=== PATIENT | female | born 1955 | race African-American/Black ===

== ENCOUNTER 2021-09-17 15:15 | Inpatient (IN) ==
--- NOTE | 2021-09-17 15:44 | Emergency Department Note ---
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 Patient reports he was hospitalized in [place] the first several days of the month and received 2 units of blood there as her blood count was low. Evidently had a syncopal event and broke her nose during this time. Prompting her initial evaluation there. She reports she has had some red blood when she sits on the toilet. Denies significant abdominal pain. Denies lightheadedness or syncope since. Did have an outpatient transfusion on the with 1 unit of blood cells. Denies of vomiting. Denies chest pain. Denies shortness of breath at rest. Patient was scheduled to see colorectal surgery in several weeks. She has had EGD and colonoscopies before. There is some question of some of this may be hemorrhoidal in nature. REVIEW OF SYSTEMS: A total of 10 review of systems was obtained and negative except as stated above in the HPI. PAST MEDICAL HISTORY: As noted above MEDICATIONS: Reviewed home medication list SOCIAL HISTORY: Lives at home, former smoker PHYSICAL EXAM: GENERAL: alert and oriented in no acute distress on stretcher, somewhat fatigued and appear Head: normocephalic and atraumatic EYES: No injection, discharge or icterus. NECK: Trachea midline. ENT: Mucous membranes pink and moist. LUNGS: Airway patent. No retractions. Breath sounds clear HEART: Regular rate and rhythm. No chest wall tenderness ABDOMEN: Soft and non-tender, without guarding or rebound. 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 Small external hemorrhoids noted. SKIN: Acyanotic, warm, dry, without rashes EXTREMITIES: Without swelling, tenderness or deformity NEUROLOGICAL: No focal deficits focal deficits. No aphasia. No facial droop or slurred speech. EK bpm normal sinus rhythm. No PVC or PAC. No acute ST segment elevation or depression. QTc 520. CONTINUOUS CARDIAC MONITORING: was ordered and showed a heart rate of 90s-100s bpm in normal sinus rhythm to sinus tachycardia Patient's laboratory studies and imaging reviewed. Differential includes Infection, dehydration, metabolic abnormality, hypo/hyperglycemia, electrolyte disturbance, anemia, hypoxia, cardiac sources,as well as other pathologies. IMPRESSION/MEDICAL DECISION MAKING: Repeat blood work was sent. EKG and chest x-ray obtained although this seems likely to be anemia related given the history. No active vomiting. Prior records from the medical center were noted with prior to being EGD from March noted some esophagitis without bleeding and some diverticula in the sigmoid colon. Patient with benign abdomen at this time doubt diverticulitis. Do not feel a CT scan of the abdomen pelvis would be beneficial at this point. Recent PEs by her report and as such would not wish to hold anticoagulation. Not hypoxic here. Type and screen sent. Patient consented for blood. Patient is anemic. Hemoccult negative on exam. Negative COVID test. Negative troponin. Again continued anticoagulation given multiple recurrent VTE's. Seems to need bleeding and possible GI evaluation as she is requiring transfusion every several days. Discussed with the patient is stable at this time as well as her significant other. Hospitalist was contacted. Doubt upper GI bleed. DIAGNOSIS: Acute blood loss anemia, history of pulmonary embolism, dyspnea on exertion DISPOSITION: Hospitalist will evaluate Patient was agreeable with this plan. Critical Care I have personally spent 35 minutes of critical care time in the direct management of this patient. This includes bedside care, interpretation of diagnostic studies, and testing, discussion with consultants, patient, and family members, and other required patient management activities. These 35 minutes is in excess of all separately billable procedures. Past Med/Surg History Surgical History (Updated 09/17/21 @ 17:52 by Brenda Acosta PA-C) S/P hysterectomy Family History (Updated 09/17/21 @ 17:54 by Brenda Acosta PA-C) Mother Ovarian cancer Grandfather (Maternal) Heart disease Social History (Updated 09/17/21 @ 18:16 by Brenda Acosta PA-C) Smoking Status: Former smoker packs per day: 1; Years Smoked: 23; Smoking End Date: 2005; Hx Alcohol Use: No Hx Substance Use: No Preferred Language: Yoruba Communication Ability: Effective Dry Ice Maker Required: No Beliefs That Will Affect Care: None Current Living Situation: Spouse Other Information That Helps Us Care for You: No Feels Safe at Home: Yes Safety Concerns: Feels Safe At This Time Assistive Devices: Glasses Allergies Allergies Allergy/AdvReac Type Severity Reaction Status Date / Time brinzolamide AdvReac Unknown CONJUNCTIVI Unverified 03/18/16 05:46 TIS codeine AdvReac Hallucinati Unverified 09/17/21 18:17 ng Home Meds Home Medications Medication Instructions Recorded Confirmed atorvastatin 40 mg tablet 40 mg PO DAILY 09/17/21 09/17/21 calcium polycarbophil 625 mg tablet 625 mg PO DAILY 09/17/21 09/17/21 ferrous sulfate 325 mg (65 mg 325 mg PO BID 09/17/21 09/17/21 iron) tablet (iron) hydrocortisone 2.5 % topical cream 1 applic DC DAILY 09/17/21 09/17/21 with perineal applicator latanoprost 0.005 % eye drops 1 drp OPB HS 09/17/21 09/17/21 levothyroxine 75 mcg tablet 75 mcg PO QAM 09/17/21 09/17/21 lisinopril 20 1 tab PO DAILY 09/17/21 09/17/21 mg-hydrochlorothiazide 12.5 mg tablet meloxicam 15 mg tablet 12 mg PO DAILY 09/17/21 09/17/21 mlnolmuttdxj-Jq-ajwx-minerals 1 tab PO DAILY 09/17/21 09/17/21 omeprazole 40 mg capsule,delayed 40 mg PO DAILY 09/17/21 09/17/21 release prednisone 10 mg tablet 5 mg PO DAILY 09/17/21 09/17/21 rivaroxaban 20 mg tablet (Xarelto) 20 mg PO DAILY 09/17/21 09/17/21 Results & Data (ED) Vital Signs Vital Signs - 24 hr 09/17/21 15:18 09/17/21 16:06 Temperature 36.2 C L Temperature Source Temporal Artery Scan Pulse Rate 105 H Pulse Rate [Apical] 98 H Pulse Rhythm Regular Pulse Rhythm [Apical] Regular Pulse Strength Normal Respiratory Rate 20 18 Respiratory Effort / Characteristics Non-Labored Spontaneous Respiratory Depth Normal Normal Respiratory Pattern Regular Blood Pressure 104/62 Blood Pressure [Left Arm] 123/78 Blood Pressure Mean 76 Blood Pressure Mean [Left Arm] 93 Blood Pressure Position Sitting Pulse Oximetry 100 96 Oxygen Delivery Method Room Air Room Air Sepsis Recent Fever Within 48 Hours No Sepsis New/Unexplained Change in Mental Status No Sepsis Action Taken by Nursing No Action Required Laboratory Data Result diagrams: 09/17/21 16:08 09/17/21 16:08 Lab Results 09/17/21 09/17/21 09/17/21 Range/Units 16:08 16:08 16:08 WBC 15.28 H (4.8-10.8) K/uL RBC 2.32 L (4.2-5.4) M/uL Hgb 6.2 L* (12.0-16.0) g/dL Hct 20.5 L* (37-47) % MCV 88.4 (80-100) fL MCH 26.7 (25-34) pg MCHC 30.2 L (32-36) g/dL RDW Std Deviation 54.5 H (36.4-46.3) fL RDW Coeff of Pete 17.6 H (11.5-14.5) % Plt Count 467 H (130-400) K/uL MPV 8.9 (7.4-10.4) fL Immature Gran % (Auto) 0.4 % Neut % (Auto) 81.8 % Lymph % (Auto) 11.8 % White % (Auto) 5.5 % Eos % (Auto) 0.4 % Baso % (Auto) 0.1 % Neut # (Auto) 12.49 H (1.4-6.5) K/uL Lymph # (Auto) 1.81 (1.2-3.4) K/uL White # (Auto) 0.84 H (0.11-0.59) K/uL Eos # (Auto) 0.06 (0-0.5) K/uL Baso # (Auto) 0.02 (0-0.2) K/uL Immature Gran # (Auto) 0.06 H (0.00-0.02) K/uL Polychromasia 1+ Hypochromasia Present Stomatocytes 1+ PT 10.9 (9.0-12.0) Seconds INR 1.0 (0.9-1.1) Sodium 136 (136-145) mmol/L Potassium 3.3 L (3.5-5.1) mmol/L Chloride 99 (98-107) mmol/L Carbon Dioxide 30 (21-32) mmol/L Anion Gap 7 (3-11) BUN 10 (6-23) mg/dl Creatinine 0.78 (0.6-1.2) mg/dl Est Cr Clr Drug Dosing Not Reportable Est GFR ( Amer) 93.1 ml/min Est GFR (Non-Af Amer) 80.3 ml/min BUN/Creatinine Ratio 12.8 (10-20) Glucose 135 H (70-99(Fasting)) mg/dl Calcium 8.5 (8.5-10.1) mg/dl Total Bilirubin 0.2 (0.2-1.0) mg/dl AST 13 (13-39) U/L ALT 13 (7-52) U/L Alkaline Phosphatase 98 (34-104) U/L Troponin I < 0.03 (0-0.04) ng/ml Total Protein 6.6 (6.0-8.3) gm/dl Albumin 3.2 L (3.4-5.0) gm/dl Globulin 3.4 (2.5-4.0) gm/dl Albumin/Globulin Ratio 0.9 (0.9-2) TSH (0.300-4.500) uIu/ml SARS-CoV-2, RNA, NAAT (NEGATIVE) Blood Type Blood Type Recheck Antibody Screen Crossmatch 09/17/21 09/17/21 09/17/21 Range/Units 16:08 16:08 16:22 WBC (4.8-10.8) K/uL RBC (4.2-5.4) M/uL Hgb (12.0-16.0) g/dL Hct (37-47) % MCV (80-100) fL MCH (25-34) pg MCHC (32-36) g/dL RDW Std Deviation (36.4-46.3) fL RDW Coeff of Pete (11.5-14.5) % Plt Count (130-400) K/uL MPV (7.4-10.4) fL Immature Gran % (Auto) % Neut % (Auto) % Lymph % (Auto) % White % (Auto) % Eos % (Auto) % Baso % (Auto) % Neut # (Auto) (1.4-6.5) K/uL Lymph # (Auto) (1.2-3.4) K/uL White # (Auto) (0.11-0.59) K/uL Eos # (Auto) (0-0.5) K/uL Baso # (Auto) (0-0.2) K/uL Immature Gran # (Auto) (0.00-0.02) K/uL Polychromasia Hypochromasia Stomatocytes PT (9.0-12.0) Seconds INR (0.9-1.1) Sodium (136-145) mmol/L Potassium (3.5-5.1) mmol/L Chloride (98-107) mmol/L Carbon Dioxide (21-32) mmol/L Anion Gap (3-11) BUN (6-23) mg/dl Creatinine (0.6-1.2) mg/dl Est Cr Clr Drug Dosing Est GFR ( Amer) ml/min Est GFR (Non-Af Amer) ml/min BUN/Creatinine Ratio (10-20) Glucose (70-99(Fasting)) mg/dl Calcium (8.5-10.1) mg/dl Total Bilirubin (0.2-1.0) mg/dl AST (13-39) U/L ALT (7-52) U/L Alkaline Phosphatase (34-104) U/L Troponin I (0-0.04) ng/ml Total Protein (6.0-8.3) gm/dl Albumin (3.4-5.0) gm/dl Globulin (2.5-4.0) gm/dl Albumin/Globulin Ratio (0.9-2) TSH 3.189 (0.300-4.500) uIu/ml SARS-CoV-2, RNA, NAAT NEGATIVE (NEGATIVE) Blood Type O Positive Blood Type Recheck Antibody Screen NEGATIVE Crossmatch See Detail 09/17/21 Range/Units 17:10 WBC (4.8-10.8) K/uL RBC (4.2-5.4) M/uL Hgb (12.0-16.0) g/dL Hct (37-47) % MCV (80-100) fL MCH (25-34) pg MCHC (32-36) g/dL RDW Std Deviation (36.4-46.3) fL RDW Coeff of Pete (11.5-14.5) % Plt Count (130-400) K/uL MPV (7.4-10.4) fL Immature Gran % (Auto) % Neut % (Auto) % Lymph % (Auto) % White % (Auto) % Eos % (Auto) % Baso % (Auto) % Neut # (Auto) (1.4-6.5) K/uL Lymph # (Auto) (1.2-3.4) K/uL White # (Auto) (0.11-0.59) K/uL Eos # (Auto) (0-0.5) K/uL Baso # (Auto) (0-0.2) K/uL Immature Gran # (Auto) (0.00-0.02) K/uL Polychromasia Hypochromasia Stomatocytes PT (9.0-12.0) Seconds INR (0.9-1.1) Sodium (136-145) mmol/L Potassium (3.5-5.1) mmol/L Chloride (98-107) mmol/L Carbon Dioxide (21-32) mmol/L Anion Gap (3-11) BUN (6-23) mg/dl Creatinine (0.6-1.2) mg/dl Est Cr Clr Drug Dosing Est GFR ( Amer) ml/min Est GFR (Non-Af Amer) ml/min BUN/Creatinine Ratio (10-20) Glucose (70-99(Fasting)) mg/dl Calcium (8.5-10.1) mg/dl Total Bilirubin (0.2-1.0) mg/dl AST (13-39) U/L ALT (7-52) U/L Alkaline Phosphatase (34-104) U/L Troponin I (0-0.04) ng/ml Total Protein (6.0-8.3) gm/dl Albumin (3.4-5.0) gm/dl Globulin (2.5-4.0) gm/dl Albumin/Globulin Ratio (0.9-2) TSH (0.300-4.500) uIu/ml SARS-CoV-2, RNA, NAAT (NEGATIVE) Blood Type Blood Type Recheck O Positive Antibody Screen Crossmatch Administered Medications Ferrous Sulfate (Ferrous Sulfate 325 Mg Tab) 325 mg PO BID MICHELLE Stop: 10/17/21 20:59 Last Admin: 09/17/21 20:57 Dose: 325 mg Documented by: [id number] Lactated Ringer's (Lr) 1,000 mls @ 80 mls/hr IV .[id number] [facility] Stop: 10/17/21 19:29 Last Admin: 09/17/21 20:53 Dose: 80 mls/hr Documented by: [id number] Latanoprost (Latanoprost 0.005% Op Soln 2.5 Ml Btl) 1 drops OPB HS MICHELLE Stop: 10/17/21 20:59 Last Admin: 09/17/21 20:58 Dose: 1 drops Documented by: [id number] Imaging Data Radiologist's Impression: Chest X-Ray 09/17/21 15:56 SINGLE VIEW CHEST CLINICAL HISTORY: Dyspnea on exertion. FINDINGS: An AP, portable, upright chest radiograph is compared to study dated 03/04/2016. The cardiomediastinal silhouette is unremarkable. There is mild bibasilar atelectasis. The lungs and pleural spaces are otherwise clear. Apparent increase in density at the lung bases is related to overlying soft tissue. No pneumothorax is seen. The bony thorax is grossly intact. IMPRESSION: No active disease in the chest. ACT 112: Negative or not required by law. Electronically signed by: Amos Mcdaniel M.D. 09/17/2021 4:32 PM Discharge Plan Visit Data Chief Complaint: Abnormal Labs/Diagnostic Testing Stated Complaint: DR REFERRED, LOW HEMO, ABNORMAL LABS ED Provider: Ed Tapia Discharge Problem: Anemia, Pulmonary embolism, DIMAS (dyspnea on exertion) Patient Disposition: Admitted As Inpatient Discharge Instructions Interventions: ED Discharge Assessment Last Done: 09/17/21 18:52
[2021-09-17 16:30] LABS: Prothrombin Time 10.9 Seconds (9.0-12.0)
--- NOTE | 2021-09-17 16:33 | XRay Report ---
SINGLE VIEW CHEST CLINICAL HISTORY: Dyspnea on exertion. FINDINGS: An AP, portable, upright chest radiograph is compared to study dated 03/04/2016. The cardiom ediastinal silhouette is unremarkable. There is mild bibasilar atelectasis. The lungs and pleural [place] are otherwise clear. Apparent increase in density at the lung bases is related to overlying soft tissue. No pneumothorax is seen. The bony thorax is grossly intact. IMPRESSION: No active disease in the chest. ACT 112: Negative or not required by law. Electronically signed by: Amos Mcdaniel M.D. 09/17/2021 4:32 PM
[2021-09-17 16:42] LABS: Alanine Aminotransferase 13 U/L (7-52); Albumin Globulin Ratio 0.9 (0.9-2); Albumin Level 3.2 gm/dl (3.4-5.0); Alkaline Phosphatase 98 U/L (34-104); Anion Gap 7 (3-11); Aspartate Aminotransferase 13 U/L (13-39); BUN Creatinine Ratio 12.8 (10-20); Bilirubin,Total 0.2 mg/dl (0.2-1.0); Blood Urea Nitrogen 10 mg/dl (6-23); Calcium 8.5 mg/dl (8.5-10.1); Carbon Dioxide 30 mmol/L (21-32); Chloride 99 mmol/L (98-107); Est GFR (African American) 93.1 ml/min; Est GFR (Non-African American) 80.3 ml/min; Globulin 3.4 gm/dl (2.5-4.0); Glucose 135 mg/dl (70-99(Fasting)); Potassium 3.3 mmol/L (3.5-5.1); Sodium 136 mmol/L (136-145); Total Protein 6.6 gm/dl (6.0-8.3)
[2021-09-17 16:43] LABS: Troponin I < 0.03 ng/ml (0-0.04)
[2021-09-17 16:49] LABS: Hematocrit (blood only) 20.5 % (37-47); Hemoglobin 6.2 g/dL (12.0-16.0); Mean Corpuscular Hemoglobin 26.7 pg (25-34); Mean Corpuscular Hgb Conc 30.2 g/dL (32-36); Mean Corpuscular Volume 88.4 fL (80-100); RDW Coefficient of Variation 17.6 % (11.5-14.5); RDW Standard Deviation 54.5 fL (36.4-46.3); Red Blood Count 2.32 M/uL (4.2-5.4); White Blood Count 15.28 K/uL (4.8-10.8)
[2021-09-17 16:50] LABS: Mean Platelet Volume 8.9 fL (7.4-10.4); Platelet Count 467 K/uL (130-400)
[2021-09-17 16:51] LABS: Basophils # (auto) 0.02 K/uL (0-0.2); Basophils % (auto) 0.1 %; Eosinophils # (auto) 0.06 K/uL (0-0.5); Eosinophils % (auto) 0.4 %; Hypochromasia Present; Immature Granulocytes # (auto) 0.06 K/uL (0.00-0.02); Immature Granulocytes % (auto) 0.4 %; Lymphocytes # (auto) 1.81 K/uL (1.2-3.4); Lymphocytes % (auto) 11.8 %; Monocytes # (auto) 0.84 K/uL (0.11-0.59); Monocytes % (auto) 5.5 %; Neutrophils # (auto) 12.49 K/uL (1.4-6.5); Neutrophils % (auto) 81.8 %; Polychromasia 1+; Stomatocytes 1+
[2021-09-17] MEDS ORDERED: SODIUM CHLORIDE 0.9% 250 ML IV PRN (16:59)
--- NOTE | 2021-09-17 17:54 | History & Physical Report ---
Date of Service September 17, 2021 Assessment & Plan (1) Anemia: Plan: -Admit to tele -transfusing 1 unit PRBCs, hemoglobin of 6.3, trend H&H next at 2200 -Status post hysterectomy, status post C-scope and EGD as per HPI -Follow a.m. labs -Consult GI, patient has scheduled outpatient colorectal surgery appointment on 09/25 however with her GI bleeding it is imperative to get GI on board at this time. Will hold Xarelto because of bright red blood per rectum. (2) Diverticulosis: Plan: - For history of such, reviewed by myself on epic -Her last C-scope and EGD were completed on 03/14/2021 which showed large grade C esophagitis without bleeding, and multiple small mouth diverticula involving the sigmoid colon. - Possible that this is the source of her bleeding however denies abdominal pain, n/v/d, intermittent constipation with taking iron tablets - Continue omeprazole while on prednisone for PMR, will hold meloxicam as this increases the risk of GI bleed. (3) HTN (hypertension): Plan: -Currently is hemodynamically stable so we will continue medications for tomorrow, will need to hold if status changes overnight (4) Pulmonary embolism: (5) Recurrent deep vein thrombosis (DVT): Plan: -History of such x3 -as per HPI, on Xarelto which we are holding currently (6) Hypothyroidism: Plan: -Continue levothyroxine (7) PMR (polymyalgia rheumatica): Plan: - Chronic, stable, has been on prednisone for several years, currently on 5 mg daily - Continue for now (8) Obesity (BMI 35.0-39.9 without comorbidity): Plan: -morbidly obese, diet and exercise to be encouraged DVT ppx: - teds, scds, holding Xarelto as above CODE: Full code Dispo: From home, likely to remain in the hospital x 1-2 days History of Present Illness Chief Complaint: Low hemoglobin, anemia Primary Care Provider: Chaz Alves MD This is a 65-year-old female with PMHx of HTN, recurrent episodes of DVT/PE while on Xarelto, currently maintained on Xarelto, diverticulosis, anemia, PMR on prednisone, history of vaginal bleeding status post vaginal [place] at [facility] [place] for endometrial intraepithelial neoplasia. Her last C-scope and EGD were completed on 03/14/2021 which showed large grade C esophagitis without bleeding, and multiple small mouth diverticula involving the sigmoid colon. Her hemoglobin baseline appears to be between 9-10, however has significantly dropped several times within the past few weeks. She was admitted to [facility] where she was transferred transfused 2 units on September 04, then on September 12 received another 1 unit in the [facility] ER, and now he presents with a hemoglobin of 6.3 today being transfused 1 unit PRBCs. Initially she had gone to the heme-onc office for repeat follow-up and was sent in to the hospital due to low hemoglobin of 6.3. Patient reports BRBPR and estimates it to be 4 cups/day; she reports 1 cup of bright red blood every time she has to go to the bathroom to urinate, which is approximately 4 times per day, and then estimates 2 cups with every bowel movement however may only have BM every other day. She continues with Xarelto. Patient has outpatient colorectal surgeon appointment scheduled on 09/25 at [facility] as this is when the specialist is in town once a month. Allergies Allergy/AdvReac Type Severity Reaction Status Date / Time brinzolamide AdvReac Unknown CONJUNCTIVI Unverified 03/18/16 05:46 TIS codeine AdvReac Hallucinati Unverified 09/17/21 18:17 ng Home Medications Medication Instructions Recorded Confirmed Type atorvastatin 40 mg tablet 40 mg PO DAILY 09/17/21 09/17/21 History calcium polycarbophil 625 mg tablet 625 mg PO DAILY 09/17/21 09/17/21 History ferrous sulfate 325 mg (65 mg 325 mg PO BID 09/17/21 09/17/21 History iron) tablet (iron) hydrocortisone 2.5 % topical cream 1 applic [place] DAILY 09/17/21 09/17/21 History with perineal applicator latanoprost 0.005 % eye drops 1 drp OPB HS 09/17/21 09/17/21 History levothyroxine 75 mcg tablet 75 mcg PO QAM 09/17/21 09/17/21 History lisinopril 20 1 tab PO DAILY 09/17/21 09/17/21 History mg-hydrochlorothiazide 12.5 mg tablet meloxicam 15 mg tablet 12 mg PO DAILY 09/17/21 09/17/21 History ebogurelytlw-Wt-cien-minerals 1 tab PO DAILY 09/17/21 09/17/21 History omeprazole 40 mg capsule,delayed 40 mg PO DAILY 09/17/21 09/17/21 History release prednisone 10 mg tablet 5 mg PO DAILY 09/17/21 09/17/21 History rivaroxaban 20 mg tablet (Xarelto) 20 mg PO DAILY 09/17/21 09/17/21 History Past Med/Surg History Surgical History (Updated 09/17/21 @ 17:52 by Brenda Acosta PA-C) S/P hysterectomy Family History (Updated 09/17/21 @ 17:54 by Brenda Acosta PA-C) Mother Ovarian cancer Grandfather (Maternal) Heart disease Social History (Updated 09/17/21 @ 18:16 by Brenda Acosta PA-C) Smoking Status: Former smoker packs per day: 1; Years Smoked: 23; Smoking End Date: 2005; Preferred Language: Chadian Feels Safe at Home: Yes Review of Systems Review of Systems: Constitutional: No fever, sweats or chills Eyes: No diplopia, no worsening or blurred vision ENT: normal hearing, no trouble swallowing Respiratory: No cough, sputum, dyspnea at rest or on exertion Cardiovascular: No chest pain, tightness or palpitations Abdomen: No pain, nausea, vomiting, diarrhea or constipation Musculoskeletal: No joint pain, calf pain, swelling Neurologic: No weakness, numbness/tingling, or balance problems Psychiatric: No anxiety or depression Skin: No rash or itch Physical Exam Physical Exam: General: awake, alert, no apparent distress, Head: Normocephalic, atraumatic ENT: PERRL, EOMI, no pharyngeal exudate, mucous membranes moist Chest: Clear to auscultation, on room air, no adventitious breath sounds Cardiac: Regular rate and rhythm, no murmur, no JVD, normal peripheral pulses, good capillary refill Abdominal: NABS x 4 quadrants, soft, nondistended, nontender to palpation, no rebound or guarding Extremities: Normal inspection, no peripheral edema or erythema, calfs nontender to palpation Psych: Normal mood and affect Neuro: AAO x 3, strength intact bilaterally and rated 5/5, no motor deficits, speech is clear, no peripheral sensory deficits Results & Data Results & Data ([facility]) Vital Signs (Past 12 Hours) Vital Signs Temp Pulse Pulse Resp BP BP Pulse Ox 09/17/21 16:06 98 H 18 123/78 96 09/17/21 15:18 36.2 C L 105 H 20 104/62 100 Laboratory Results 09/17/21 09/17/21 09/17/21 17:10 16:22 16:08 WBC RBC Hgb Hct MCV MCH MCHC RDW Std Deviation RDW Coeff of Pete Plt Count MPV Immature Gran % (Auto) Neut % (Auto) Lymph % (Auto) [place] % (Auto) Eos % (Auto) Baso % (Auto) Neut # (Auto) Lymph # (Auto) [place] # (Auto) Eos # (Auto) Baso # (Auto) Immature Gran # (Auto) Polychromasia Hypochromasia Stomatocytes PT INR Sodium Potassium Chloride Carbon Dioxide Anion Gap BUN Creatinine Est Cr Clr Drug Dosing Est GFR ( Amer) Est GFR (Non-Af Amer) BUN/Creatinine Ratio Glucose Calcium Total Bilirubin AST ALT Alkaline Phosphatase Troponin I Total Protein Albumin Globulin Albumin/Globulin Ratio TSH SARS-CoV-2, RNA, NAAT NEGATIVE Blood Type O Positive Blood Type Recheck O Positive Antibody Screen NEGATIVE Crossmatch See Detail 09/17/21 09/17/21 09/17/21 16:08 16:08 16:08 WBC RBC Hgb Hct MCV MCH MCHC RDW Std Deviation RDW Coeff of Pete Plt Count MPV Immature Gran % (Auto) Neut % (Auto) Lymph % (Auto) [place] % (Auto) Eos % (Auto) Baso % (Auto) Neut # (Auto) Lymph # (Auto) [place] # (Auto) Eos # (Auto) Baso # (Auto) Immature Gran # (Auto) Polychromasia Hypochromasia Stomatocytes PT 10.9 INR 1.0 Sodium 136 Potassium 3.3 L Chloride 99 Carbon Dioxide 30 Anion Gap 7 BUN 10 Creatinine 0.78 Est Cr Clr Drug Dosing Not Reportable Est GFR ( Amer) 93.1 Est GFR (Non-Af Amer) 80.3 BUN/Creatinine Ratio 12.8 Glucose 135 H Calcium 8.5 Total Bilirubin 0.2 AST 13 ALT 13 Alkaline Phosphatase 98 Troponin I < 0.03 Total Protein 6.6 Albumin 3.2 L Globulin 3.4 Albumin/Globulin Ratio 0.9 TSH 3.189 SARS-CoV-2, RNA, NAAT Blood Type Blood Type Recheck Antibody Screen Crossmatch 09/17/21 16:08 WBC 15.28 H RBC 2.32 L Hgb 6.2 L* Hct 20.5 L* MCV 88.4 MCH 26.7 MCHC 30.2 L RDW Std Deviation 54.5 H RDW Coeff of Pete 17.6 H Plt Count 467 H MPV 8.9 Immature Gran % (Auto) 0.4 Neut % (Auto) 81.8 Lymph % (Auto) 11.8 [place] % (Auto) 5.5 Eos % (Auto) 0.4 Baso % (Auto) 0.1 Neut # (Auto) 12.49 H Lymph # (Auto) 1.81 [place] # (Auto) 0.84 H Eos # (Auto) 0.06 Baso # (Auto) 0.02 Immature Gran # (Auto) 0.06 H Polychromasia 1+ Hypochromasia Present Stomatocytes 1+ PT INR Sodium Potassium Chloride Carbon Dioxide Anion Gap BUN Creatinine Est Cr Clr Drug Dosing Est GFR ( Amer) Est GFR (Non-Af Amer) BUN/Creatinine Ratio Glucose Calcium Total Bilirubin AST ALT Alkaline Phosphatase Troponin I Total Protein Albumin Globulin Albumin/Globulin Ratio TSH SARS-CoV-2, RNA, NAAT Blood Type Blood Type Recheck Antibody Screen Crossmatch Diagnostic Findings Chest X-Ray 09/17/21 15:56 SINGLE VIEW CHEST CLINICAL HISTORY: Dyspnea on exertion. FINDINGS: An AP, portable, upright chest radiograph is compared to study dated 03/04/2016. The cardiomediastinal silhouette is unremarkable. There is mild bibasilar atelectasis. The lungs and pleural spaces are otherwise clear. Apparent increase in density at the lung bases is related to overlying soft tissue. No pneumothorax is seen. The bony thorax is grossly intact. IMPRESSION: No active disease in the chest. ACT 112: Negative or not required by law. Electronically signed by: Amos Mcdaniel M.D. 09/17/2021 4:32 PM ECG Additional Comments: 17-SEP-2021 15:57:57 [facility]-EDSTAT ROUTINE RETRIEVAL Normal sinus rhythm Prolonged QT Abnormal ECG When compared with ECG of 29-AUG-2016 13:47, QT has lengthened 25mm/s10mm/[id number] HDCID: 12Referred by: REFERRED SELF Unconfirmed Vent. rate 98 BPM WI interval 134 ms QRS duration 94 ms QT/QTc 408/520 ms Code Status & VTE Plan Code Status Full code-discussed with the patient at bedside Supervising Physician Co-Signing Physician Notes Patient was seen and evaluated independently. Case was discussed with ADAM. Ms Smith has a history of multiple VTEs. First diagnosed about 7 years ago for which she was placed on Xarelto, recurrent VTE while she was taken off xarelto and placed on aspirin. Each subsequent VTE she developed was while she was taken off Xarelto. Her last VTE was about 1 year ago (PE) again when she was taken off Xarelto for a surgical procedure. She reports not having had a hypercoagulable workup, however, with her multiple VTEs, she would need to r emain on lifelong anticoagulation anyway. With regards to her rectal bleed. She reports this has also been ongoing. She does have a history of menorrhagia due to fibroids but she has had a hysterec eduard 08/2020. She last had an EGD/Colonoscopy Mar 2021 which reportedly showed esophagitis and diverticulosis. In the past 2 weeks, she has been hospitalized twice and received multiple transfusions for ongoing rectal bleed. She is hemodynamically stable and has a strong history of VTE so I would not reverse her anticoagulation. Rather, would HOLD her xarelto and transfuse as needed for Hb < 7. If she became hemodynamically unstable or ongoing bleed, would give [facility]. Will ask for GI consultation. She needs repeat endoscopy to evaluate ongoing bleed. Her last dose of Xarelto was 09/16/21 evening. She can remain on clears until evaluated by GI
[2021-09-17] MEDS ORDERED: ONDANSETRON INJ 2 MG/ML 2 ML VIAL IV PRN (19:15)
[2021-09-17] MEDS: LACTATED RINGER'S 1,000 ML IV SCH (20:53)
[2021-09-17] MEDS: FERROUS SULFATE 325 MG TAB PO SCH (20:57)
[2021-09-17] MEDS: LATANOPROST 0.005% OP SOLN 2.5 ML BTL OPB SCH (20:58)
--- NOTE | 2021-09-17 21:57 | Electrocardiogram Report ---
Test Reason : Blood Pressure : / mmHG Vent. Rate : 098 BPM Atrial Rate : 098 BPM P-R Int : 134 ms QRS Dur : 094 ms QT Int : 384 ms P-R-T Axes : 073 018 045 degrees QTc Int : 491 ms Normal sinus rhythm Prolonged QT Abnormal ECG When compared with ECG of 04-MAR-2016 13:47, QT has lengthened Confirmed by Glenn Burnett ([id number]) on 09/17/2021 9:57:31 PM Referred By: REFERRED SELF Confirmed By:Glenn Burnett
[2021-09-17 22:45] LABS: Hematocrit (blood only) 23.3 % (37-47); Hemoglobin 7.2 g/dL (12.0-16.0)
[2021-09-18] MEDS: LEVOTHYROXINE SODIUM 75 MCG TABLET PO SCH (05:49)
[2021-09-18 06:37] LABS: Hematocrit (blood only) 21.8 % (37-47); Hemoglobin 6.9 g/dL (12.0-16.0); Mean Corpuscular Hemoglobin 27.7 pg (25-34); Mean Corpuscular Hgb Conc 31.7 g/dL (32-36); Mean Corpuscular Volume 87.6 fL (80-100); Mean Platelet Volume 8.8 fL (7.4-10.4); Nucleated RBC # (auto) 0.03 K/uL (0-0); Nucleated RBC % (auto) 0.3 %; Platelet Count 417 K/uL (130-400); RDW Standard Deviation 53.3 fL (36.4-46.3); Red Blood Count 2.49 M/uL (4.2-5.4); White Blood Count 12.88 K/uL (4.8-10.8)
[2021-09-18] MEDS ORDERED: SODIUM CHLORIDE 0.9% 250 ML IV PRN ×2 (06:38→08:27)
[2021-09-18 06:53] LABS: Albumin Globulin Ratio 0.9 (0.9-2); Albumin Level 2.9 gm/dl (3.4-5.0); BUN Creatinine Ratio 10.4 (10-20); Bilirubin,Total 0.4 mg/dl (0.2-1.0); Calcium 7.5 mg/dl (8.5-10.1); Creatinine Clr Calc Pharmacy 96.5 ml/min; Est GFR (African American) 94.6 ml/min; Est GFR (Non-African American) 81.6 ml/min; Globulin 3.1 gm/dl (2.5-4.0); Potassium 3.1 mmol/L (3.5-5.1)
[2021-09-18 06:58] LABS: Basophils # (auto) 0.01 K/uL (0-0.2); Basophils % (auto) 0.1 %; Eosinophils # (auto) 0.25 K/uL (0-0.5); Eosinophils % (auto) 1.9 %; Immature Granulocytes # (auto) 0.03 K/uL (0.00-0.02); Immature Granulocytes % (auto) 0.2 %; Lymphocytes # (auto) 2.82 K/uL (1.2-3.4); Lymphocytes % (auto) 21.9 %; Monocytes # (auto) 0.72 K/uL (0.11-0.59); Monocytes % (auto) 5.6 %; Neutrophils # (auto) 9.05 K/uL (1.4-6.5); Neutrophils % (auto) 70.3 %; Polychromasia 2+
[2021-09-18] MEDS: ATORVASTATIN 40 MG TAB PO SCH (08:09)
[2021-09-18] MEDS: FERROUS SULFATE 325 MG TAB PO SCH ×2 (08:09→20:37)
[2021-09-18] MEDS: HYDROCORTISONE HC 2.5% CRM 30GM TUBE EXT SCH (08:09)
[2021-09-18] MEDS: predniSONE 5 MG TAB PO SCH (08:10)
[2021-09-18] MEDS: CEROVITE ADV FORMULA TAB PO SCH (08:10)
[2021-09-18] MEDS: PANTOprazole 40 MG TAB PO SCH (08:10)
--- NOTE | 2021-09-18 08:40 | Gastrointestinal Consultation ---
Date of Consultation September 18, 2021 Assessment & Plan (1) Rectal bleed: 65 year old female anticoagulated on xarelto admitted w/ painless rectal bleeding, onset one year ago. Had EGD/Colonoscoy at OSH in Fall 2020 which showed esophagitis, hemorrhoids and diverticular disease Hold Xarelto Recommend CTAP today Can continue clear liquids diet Trend HGB Monitor and document stool output Transfuse PRN Plan for colonoscopy Thank you for allowing us to participate in the care of this patient. Please call with any acute changes, questions or concerns. Please see addendum below with additional recommendation from my supervising physician. Supervising Physician Co-Signing Physician Notes 65 yo fm with a history being admitted for painless rectal bleeding and noted to be anemic. She is feeling fine. Pertinent pmhx dvt/pe on xarelto, pmr Prior abd surgery tubal ligation PE - well nourished fm in nad, HEENT - perrla, Abd obese soft nt nd Labs reviewed Prior egd/colon at [facility] reviewed CT a/p showing diverticulosis Suspect this is diverticular bleed/hemorrhoidal bleed- prep tomorrow, hold xarelto today and tomorrow, plan for colonoscopy . History of Present Illness Reason for Consultation: rectal bleeding Requesting Physician: Malissa Attending Physician: Macy Leonardo MD History of Present Illness 65 year old female with history of HTN, PE, DVT, PMR admitted with rectal bleeding, onset 1 year ago. Notes at that time she was evaluated by Dr. Rider and planned for EGD/Colon. She underwent these tests in the fall and she notes they were normal. Since, she has been admitted 1-2 times to OSH for rectal bleeding. Was recommended she follow up with colorectal surgery which is scheduled next week. She was evaluated by hematolgoy as well who felt her anemia was related to her rectal bleeding. She denies abd pain. No nausea, vomiting. No GERD. Suggests daily BMs, soft, brown. Passes rectal bleeding with each BM and with urinary. All bright red. No clots. No melena. She had BM prior to my arrival, all BRB in toilet bowl On Xarelto, last dose yesterday Baseline HGB 10 EGD 2020: esophagitis Colonoscopy 2020: hemorrhoids and diverticula HGB 6.2 on arrival s.p 1 unit RBC with HGB this AM 6.9 No BUN elevation Allergies Allergy/AdvReac Type Severity Reaction Status Date / Time brinzolamide AdvReac Unknown CONJUNCTIVI Unverified 03/18/16 05:46 TIS codeine AdvReac Hallucinati Unverified 09/17/21 18:17 ng Home Medications Medication Instructions Recorded Confirmed Type atorvastatin 40 mg tablet 40 mg PO DAILY 09/17/21 09/17/21 History calcium polycarbophil 625 mg tablet 625 mg PO DAILY 09/17/21 09/17/21 History ferrous sulfate 325 mg (65 mg 325 mg PO BID 09/17/21 09/17/21 History iron) tablet (iron) hydrocortisone 2.5 % topical cream 1 applic [place] DAILY 09/17/21 09/17/21 History with perineal applicator latanoprost 0.005 % eye drops 1 drp OPB HS 09/17/21 09/17/21 History levothyroxine 75 mcg tablet 75 mcg PO QAM 09/17/21 09/17/21 History lisinopril 20 1 tab PO DAILY 09/17/21 09/17/21 History mg-hydrochlorothiazide 12.5 mg tablet meloxicam 15 mg tablet 12 mg PO DAILY 09/17/21 09/17/21 History ekgvfkfipcbc-Ni-qfzz-minerals 1 tab PO DAILY 09/17/21 09/17/21 History omeprazole 40 mg capsule,delayed 40 mg PO DAILY 09/17/21 09/17/21 History release prednisone 10 mg tablet 5 mg PO DAILY 09/17/21 09/17/21 History rivaroxaban 20 mg tablet (Xarelto) 20 mg PO DAILY 09/17/21 09/17/21 History Patient History Surgical History (Updated 09/17/21 @ 17:52 by Brenda Acosta PA-C) S/P hysterectomy Family History (Updated 09/17/21 @ 17:54 by Brenda Acosta PA-C) Mother Ovarian cancer Grandfather (Maternal) Heart disease Social History (Updated 09/17/21 @ 18:16 by Brenda Acosta PA-C) Smoking Status: Former smoker packs per day: 1; Years Smoked: 23; Smoking End Date: 2006; Hx Alcohol Use: No Hx Substance Use: No Preferred Language: Luxembourgish Communication Ability: Effective Account Receivable Clerk Required: No Beliefs That Will Affect Care: None marital status: Current Living Situation: Spouse How many Children do You have: 1 Other Information That Helps Us Care for You: No Feels Safe at Home: Yes Safety Concerns: Feels Safe At This Time Assistive Devices: None Review of Systems Review of Systems: All systems reviewed & are unremarkable except as noted in HPI & below Physical Exam Constitutional: WD/WN, vitals as above Neck: trachea midline, no thyromegaly Respiratory: normal respiratory effort, lungs clear to auscultation Cardiovascular: RRR, no murmur, no edema Gastrointestinal (Abdomen): normal bowel sounds, soft, nontender, no hepatosplenomegaly Skin: no rashes, warm and dry Results & Data ([facility]) Vital Signs (Past 12 Hours) Vital Signs Temp Pulse Pulse Resp BP Pulse Ox 09/18/21 07:52 36.9 C 88 18 116/72 98 09/18/21 02:30 36.6 C 91 H 20 132/73 96 09/18/21 00:00 95 H 09/17/21 22:20 36.8 C 90 20 132/76 100 Laboratory Results 09/18/21 09/18/21 09/18/21 Range/Units 06:11 06:11 06:11 WBC 12.88 H (4.8-10.8) K/uL RBC 2.49 L (4.2-5.4) M/uL Hgb 6.9 L* (12.0-16.0) g/dL Hct 21.8 L (37-47) % MCV 87.6 (80-100) fL MCH 27.7 (25-34) pg MCHC 31.7 L (32-36) g/dL RDW Std Deviation 53.3 H (36.4-46.3) fL RDW Coeff of Pete 17.0 H (11.5-14.5) % Plt Count 417 H (130-400) K/uL MPV 8.8 (7.4-10.4) fL Immature Gran % (Auto) 0.2 % Neut % (Auto) 70.3 % Lymph % (Auto) 21.9 % [place] % (Auto) 5.6 % Eos % (Auto) 1.9 % Baso % (Auto) 0.1 % Neut # (Auto) 9.05 H (1.4-6.5) K/uL Lymph # (Auto) 2.82 (1.2-3.4) K/uL [place] # (Auto) 0.72 H (0.11-0.59) K/uL Eos # (Auto) 0.25 (0-0.5) K/uL Baso # (Auto) 0.01 (0-0.2) K/uL Immature Gran # (Auto) 0.03 H (0.00-0.02) K/uL Absolute Nucleated RBC 0.03 H (0-0) K/uL Nucleated RBC % (auto) 0.3 % Polychromasia 2+ Hypochromasia Stomatocytes PT (9.0-12.0) Seconds INR (0.9-1.1) Sodium 137 (136-145) mmol/L Potassium 3.1 L (3.5-5.1) mmol/L Chloride 101 (98-107) mmol/L Carbon Dioxide 30 (21-32) mmol/L Anion Gap 6 (3-11) BUN 8 (6-23) mg/dl Creatinine 0.77 (0.6-1.2) mg/dl Est Cr Clr Drug Dosing 96.5 Est GFR ( Amer) 94.6 ml/min Est GFR (Non-Af Amer) 81.6 ml/min BUN/Creatinine Ratio 10.4 (10-20) Glucose 110 H (70-99(Fasting)) mg/dl Calcium 7.5 L (8.5-10.1) mg/dl Total Bilirubin 0.4 (0.2-1.0) mg/dl AST 12 L (13-39) U/L ALT 12 (7-52) U/L Alkaline Phosphatase 89 (34-104) U/L Troponin I (0-0.04) ng/ml Total Protein 6.0 (6.0-8.3) gm/dl Albumin 2.9 L (3.4-5.0) gm/dl Globulin 3.1 (2.5-4.0) gm/dl Albumin/Globulin Ratio 0.9 (0.9-2) TSH (0.300-4.500) uIu/ml Hepatitis C Ab Screen Pending SARS-CoV-2, RNA, NAAT (NEGATIVE) Blood Type Blood Type Recheck Antibody Screen Crossmatch 09/17/21 09/17/21 09/17/21 Range/Units 22:21 17:10 16:22 WBC (4.8-10.8) K/uL RBC (4.2-5.4) M/uL Hgb 7.2 L (12.0-16.0) g/dL Hct 23.3 L (37-47) % MCV (80-100) fL MCH (25-34) pg MCHC (32-36) g/dL RDW Std Deviation (36.4-46.3) fL RDW Coeff of Pete (11.5-14.5) % Plt Count (130-400) K/uL MPV (7.4-10.4) fL Immature Gran % (Auto) % Neut % (Auto) % Lymph % (Auto) % [place] % (Auto) % Eos % (Auto) % Baso % (Auto) % Neut # (Auto) (1.4-6.5) K/uL Lymph # (Auto) (1.2-3.4) K/uL [place] # (Auto) (0.11-0.59) K/uL Eos # (Auto) (0-0.5) K/uL Baso # (Auto) (0-0.2) K/uL Immature Gran # (Auto) (0.00-0.02) K/uL Absolute Nucleated RBC (0-0) K/uL Nucleated RBC % (auto) % Polychromasia Hypochromasia Stomatocytes PT (9.0-12.0) Seconds INR (0.9-1.1) Sodium (136-145) mmol/L Potassium (3.5-5.1) mmol/L Chloride (98-107) mmol/L Carbon Dioxide (21-32) mmol/L Anion Gap (3-11) BUN (6-23) mg/dl Creatinine (0.6-1.2) mg/dl Est Cr Clr Drug Dosing Est GFR ( Amer) ml/min Est GFR (Non-Af Amer) ml/min BUN/Creatinine Ratio (10-20) Glucose (70-99(Fasting)) mg/dl Calcium (8.5-10.1) mg/dl Total Bilirubin (0.2-1.0) mg/dl AST (13-39) U/L ALT (7-52) U/L Alkaline Phosphatase (34-104) U/L Troponin I (0-0.04) ng/ml Total Protein (6.0-8.3) gm/dl Albumin (3.4-5.0) gm/dl Globulin (2.5-4.0) gm/dl Albumin/Globulin Ratio (0.9-2) TSH (0.300-4.500) uIu/ml Hepatitis C Ab Screen SARS-CoV-2, RNA, NAAT (NEGATIVE) Blood Type O Positive Blood Type Recheck O Positive Antibody Screen NEGATIVE Crossmatch See Detail 09/17/21 09/17/21 09/17/21 Range/Units 16:08 16:08 16:08 WBC (4.8-10.8) K/uL RBC (4.2-5.4) M/uL Hgb (12.0-16.0) g/dL Hct (37-47) % MCV (80-100) fL MCH (25-34) pg MCHC (32-36) g/dL RDW Std Deviation (36.4-46.3) fL RDW Coeff of Pete (11.5-14.5) % Plt Count (130-400) K/uL MPV (7.4-10.4) fL Immature Gran % (Auto) % Neut % (Auto) % Lymph % (Auto) % [place] % (Auto) % Eos % (Auto) % Baso % (Auto) % Neut # (Auto) (1.4-6.5) K/uL Lymph # (Auto) (1.2-3.4) K/uL [place] # (Auto) (0.11-0.59) K/uL Eos # (Auto) (0-0.5) K/uL Baso # (Auto) (0-0.2) K/uL Immature Gran # (Auto) (0.00-0.02) K/uL Absolute Nucleated RBC (0-0) K/uL Nucleated RBC % (auto) % Polychromasia Hypochromasia Stomatocytes PT (9.0-12.0) Seconds INR (0.9-1.1) Sodium 136 (136-145) mmol/L Potassium 3.3 L (3.5-5.1) mmol/L Chloride 99 (98-107) mmol/L Carbon Dioxide 30 (21-32) mmol/L Anion Gap 7 (3-11) BUN 10 (6-23) mg/dl Creatinine 0.78 (0.6-1.2) mg/dl Est Cr Clr Drug Dosing Not Reportable Est GFR ( Amer) 93.1 ml/min Est GFR (Non-Af Amer) 80.3 ml/min BUN/Creatinine Ratio 12.8 (10-20) Glucose 135 H (70-99(Fasting)) mg/dl Calcium 8.5 (8.5-10.1) mg/dl Total Bilirubin 0.2 (0.2-1.0) mg/dl AST 13 (13-39) U/L ALT 13 (7-52) U/L Alkaline Phosphatase 98 (34-104) U/L Troponin I < 0.03 (0-0.04) ng/ml Total Protein 6.6 (6.0-8.3) gm/dl Albumin 3.2 L (3.4-5.0) gm/dl Globulin 3.4 (2.5-4.0) gm/dl Albumin/Globulin Ratio 0.9 (0.9-2) TSH 3.189 (0.300-4.500) uIu/ml Hepatitis C Ab Screen SARS-CoV-2, RNA, NAAT NEGATIVE (NEGATIVE) Blood Type Blood Type Recheck Antibody Screen Crossmatch 09/17/21 09/17/21 Range/Units 16:08 16:08 WBC 15.28 H (4.8-10.8) K/uL RBC 2.32 L (4.2-5.4) M/uL Hgb 6.2 L* (12.0-16.0) g/dL Hct 20.5 L* (37-47) % MCV 88.4 (80-100) fL MCH 26.7 (25-34) pg MCHC 30.2 L (32-36) g/dL RDW Std Deviation 54.5 H (36.4-46.3) fL RDW Coeff of Pete 17.6 H (11.5-14.5) % Plt Count 467 H (130-400) K/uL MPV 8.9 (7.4-10.4) fL Immature Gran % (Auto) 0.4 % Neut % (Auto) 81.8 % Lymph % (Auto) 11.8 % [place] % (Auto) 5.5 % Eos % (Auto) 0.4 % Baso % (Auto) 0.1 % Neut # (Auto) 12.49 H (1.4-6.5) K/uL Lymph # (Auto) 1.81 (1.2-3.4) K/uL [place] # (Auto) 0.84 H (0.11-0.59) K/uL Eos # (Auto) 0.06 (0-0.5) K/uL Baso # (Auto) 0.02 (0-0.2) K/uL Immature Gran # (Auto) 0.06 H (0.00-0.02) K/uL Absolute Nucleated RBC (0-0) K/uL Nucleated RBC % (auto) % Polychromasia 1+ Hypochromasia Present Stomatocytes 1+ PT 10.9 (9.0-12.0) Seconds INR 1.0 (0.9-1.1) Sodium (136-145) mmol/L Potassium (3.5-5.1) mmol/L Chloride (98-107) mmol/L Carbon Dioxide (21-32) mmol/L Anion Gap (3-11) BUN (6-23) mg/dl Creatinine (0.6-1.2) mg/dl Est Cr Clr Drug Dosing Est GFR ( Amer) ml/min Est GFR (Non-Af Amer) ml/min BUN/Creatinine Ratio (10-20) Glucose (70-99(Fasting)) mg/dl Calcium (8.5-10.1) mg/dl Total Bilirubin (0.2-1.0) mg/dl AST (13-39) U/L ALT (7-52) U/L Alkaline Phosphatase (34-104) U/L Troponin I (0-0.04) ng/ml Total Protein (6.0-8.3) gm/dl Albumin (3.4-5.0) gm/dl Globulin (2.5-4.0) gm/dl Albumin/Globulin Ratio (0.9-2) TSH (0.300-4.500) uIu/ml Hepatitis C Ab Screen SARS-CoV-2, RNA, NAAT (NEGATIVE) Blood Type Blood Type Recheck Antibody Screen Crossmatch
[2021-09-18] MEDS ORDERED: CALCIUM POLYCARBOPHIL 625MG TAB PO SCH (09:00)
[2021-09-18] MEDS ORDERED: OPTIRAY 320 100ml IV ONE (09:21)
[2021-09-18] MEDS: CALCIUM CARBONATE 1,250 MG/5 ML UDC PO SCH ×2 (09:45→20:37)
[2021-09-18] MEDS: POTASSIUM CHLORIDE CRTAB 20 MEQ TABCR PO SCH ×3 (09:45→20:38)
--- NOTE | 2021-09-18 09:51 | CT Scan Report ---
CT OF THE ABDOMEN AND PELVIS WITH CONTRAST CLINICAL HISTORY: GI bleed. COMPARISON STUDY: None. TECHNIQUE: Following IV administration of 95 mL of Optiray, axial images of the abdomen and pelvis we re obtained from the lung bases to the proximal femurs. Images were reviewed in the axial, sagittal, and coronal planes. IV contrast was administered without complication. Automated exposure control wa s utilized for the study. A dose lowering technique was utilized adhering to the principles of ALARA . CT DOSE: 2001.23 mGy.cm FINDINGS: Lung bases are unremarkable. No pneumatosis, free air or portal venous gas is present. The liver, spleen, adrenal glands, left kidney and pancreas are unremarkable. 1.5 cm lesion within the mi dpole of the right kidney is difficult to characterize on this exam but measures near water attenuati on. This is probably benign. There is no hydronephrosis. No biliary or pancreatic ductal dilatation i s present. No peripancreatic or pericholecystic infiltration is present. Colonic diverticulosis is no judith without evidence for acute diverticulitis. No mucosal lesion is identified within the bowel altho ugh sensitivity is diminished given CT technique. No intraluminal contrast within the bowel is identi fied. Hyperdense material within portions of the small bowel likely reflects ingested contents. There is no lymphadenopathy within the abdomen or pelvis. Uterus is absent. No acute fracture or suspiciou s lesion within the visualized skeletal structures is present. IMPRESSION: 1. No acute process within the abdomen or pelvis. 2. Colonic diverticulosis without evidence for acute diverticulitis. 3. No bowel mucosal lesion identified although sensitivity diminished given CT technique. No intralum inal contrast within the bowel. ACT 112: Negative or not required by law. Electronically signed by: Star Elizabeth M.D. 09/18/2021 9:50 AM
[2021-09-18] MEDS: LACTATED RINGER'S 1,000 ML IV SCH (13:30)
[2021-09-18 14:49] LABS: Hematocrit (blood only) 25.4 % (37-47); Hemoglobin 8.1 g/dL (12.0-16.0)
--- NOTE | 2021-09-18 15:03 | Hospitalist Progress Note ---
Date of Service September 18, 2021 Assessment & Plan (1) Anemia: (2) Diverticulosis: (3) HTN (hypertension): (4) Pulmonary embolism: (5) Recurrent deep vein thrombosis (DVT): (6) Hypothyroidism: (7) PMR (polymyalgia rheumatica): (8) Obesity (BMI 35.0-39.9 without comorbidity): Plan: Acute on chronic blood loss anemia -in setting of being on Xarelto -Hb 6.2 on admission s/p 1 unit pRBC--> 7.2 --> 6.9 this morning s/p 1u nit pRBC --> 8.1 latest -Will repeat again this evening. Transfuse if Hb <7 -Appreciate GI input, plan for prep 09/19 and colonoscopy 09/20. -continue on clears for now Recurrent VTE -on lifelong Xarelto, likely underlying hypercoagulable condition -hold Xarelto, last dose 09/16 evening HTN -hold antihypertensives in setting of GI bleed Hypothyroidism -synthroid History of menorrhagia and fibroids -s/p hysterectomy DVT ppx SCDs Admission and Anticipated Discharge Date Admission Date: September 17, 2021 Subjective Still with painless rectal bleed. Volume and frequency are less than her usual Received 1 unit pRBC yesterday evening in ER Getting another 1 unit pRBC this morning Physical Exam Physical Exam: Appears well, no acute distress Respiratory: breathing comfortably on room air, no wheezing/rhonchi/rales Cardiovascular: regular rate and rhythm, no murmurs/rubs/gallops Gastrointestinal (Abdomen): soft, non tender, non distended Musculoskeletal: no edema, no cyanosis or clubbing Neurologic: awake, alert, spontaneously moving extremities Results & Data Results & Data ([facility]) Vital Signs (Past 12 Hours) Vital Signs Temp Pulse Pulse Resp BP BP Pulse Ox 09/18/21 13:21 37.0 C 88 17 134/76 98 09/18/21 12:54 36.7 C 90 16 137/75 98 09/18/21 11:55 36.9 C 86 20 136/82 99 09/18/21 10:52 36.6 C 109 H 18 120/61 98 09/18/21 10:25 36.9 C 87 18 133/73 97 09/18/21 10:10 36.9 C 86 16 129/74 98 09/18/21 09:50 36.5 C 87 17 131/76 98 09/18/21 07:52 36.9 C 88 18 116/72 98 Laboratory Results Short CBC 09/17/21 09/17/21 09/18/21 Range/Units 16:08 22:21 06:11 WBC 15.28 H 12.88 H (4.8-10.8) K/uL Hgb 6.2 L* 7.2 L 6.9 L* (12.0-16.0) g/dL Hct 20.5 L* 23.3 L 21.8 L (37-47) % Plt Count 467 H 417 H (130-400) K/uL 09/18/21 Range/Units 14:36 WBC (4.8-10.8) K/uL Hgb 8.1 L (12.0-16.0) g/dL Hct 25.4 L (37-47) % Plt Count (130-400) K/uL BMP 09/17/21 09/18/21 16:08 06:11 Sodium 136 137 Potassium 3.3 L 3.1 L Chloride 99 101 Carbon Dioxide 30 30 BUN 10 8 Creatinine 0.78 0.77 Glucose 135 H 110 H Calcium 8.5 7.5 L Cardiac Enzymes 09/17/21 Range/Units 16:08 Troponin I < 0.03 (0-0.04) ng/ml Liver Function 09/17/21 09/18/21 Range/Units 16:08 06:11 Total Bilirubin 0.2 0.4 (0.2-1.0) mg/dl AST 13 12 L (13-39) U/L ALT 13 12 (7-52) U/L Alkaline Phosphatase 98 89 (34-104) U/L Albumin 3.2 L 2.9 L (3.4-5.0) gm/dl Medications Administered Current Inpatient Medications Acetaminophen (Acetaminophen 325 Mg Tab) 650 mg PO Q4H PRN PRN Reason: Moderate Pain Stop: 10/17/21 19:14 Atorvastatin Calcium (Atorvastatin 40 Mg Tab) 40 mg PO DAILY MICHELLE Stop: 10/18/21 08:59 Last Admin: 09/18/21 08:09 Dose: 40 mg Documented by: Calcium Carbonate (Calcium Carbonate 1,250 Mg/5 Ml Udc) 1,250 mg PO BID MICHELLE Stop: 09/20/21 08:59 Last Admin: 09/18/21 09:45 Dose: 1,250 mg Documented by: Calcium Polycarbophil (Calcium Polycarbophil 625mg Tab) 625 mg PO DAILY MICHELLE Stop: 10/18/21 08:59 Last Admin: 09/18/21 08:09 Dose: 625 mg Documented by: Ferrous Sulfate (Ferrous Sulfate 325 Mg Tab) 325 mg PO BID MICHELLE Stop: 10/17/21 20:59 Last Admin: 09/18/21 08:09 Dose: 325 mg Documented by: Hydrocortisone (Hydrocortisone Hc 2.5% Crm 30gm Tube) 1 appln EXT DAILY MICHELLE Stop: 10/18/21 08:59 Last Admin: 09/18/21 08:09 Dose: 1 appln Documented by: Lactated Ringer's (Lr) 1,000 mls @ 80 mls/hr IV .[id number] [facility] Stop: 10/17/21 19:29 Last Admin: 09/18/21 13:30 Dose: Not Given Documented by: Sodium Chloride (Nss) 250 mls @ 15 mls/hr IV .[id number] PRN PRN Reason: For Transfusion Stop: 09/18/21 16:38 Sodium Chloride (Nss) 250 mls @ 15 mls/hr IV .[id number] PRN PRN Reason: For Transfusion Stop: 09/18/21 18:28 Latanoprost (Latanoprost 0.005% Op Soln 2.5 Ml Btl) 1 drops OPB HS [facility] Stop: 10/17/21 20:59 Last Admin: 09/17/21 20:58 Dose: 1 drops Documented by: Levothyroxine Sodium (Levothyroxine Sodium 75 Mcg Tablet) 75 mcg PO DAILYBB [facility] Stop: 10/18/21 06:29 Last Admin: 09/18/21 05:49 Dose: 75 mcg Documented by: Multivitamins/Minerals (Cerovite Adv Formula Tab) 1 tab PO DAILY [facility] Stop: 10/18/21 08:59 Last Admin: 09/18/21 08:10 Dose: 1 tab Documented by: Ondansetron HCl (Ondansetron Inj 2 Mg/Ml 2 Ml Vial) 4 mg IV Q4H PRN PRN Reason: Nausea And Vomiting Stop: 10/17/21 19:14 Pantoprazole Sodium (Pantoprazole 40 Mg Tab) 40 mg PO DAILY MICHELLE Stop: 10/18/21 08:59 Last Admin: 09/18/21 08:10 Dose: 40 mg Documented by: Potassium Chloride (Potassium Chloride Crtab 20 Meq Tabcr) 20 meq PO TID MICHELLE Stop: 10/18/21 08:59 Last Admin: 09/18/21 15:02 Dose: 20 meq Documented by: Prednisone (Prednisone 5 Mg Tab) 5 mg PO DAILY MICHELLE Stop: 10/18/21 08:59 Last Admin: 09/18/21 08:10 Dose: 5 mg Documented by: (1) Anemia Anemia type: unspecified type Qualified Code(s): D64.9 - Anemia, unspecified (2) Pulmonary embolism Acute cor pulmonale presence: without acute cor pulmonale Chronicity: chronic Pulmonary embolism type: unspecified Qualified Code(s): I27.82 - Chronic pulmonary embolism
[2021-09-18] MEDS: LATANOPROST 0.005% OP SOLN 2.5 ML BTL OPB SCH (20:38)
[2021-09-18 21:07] LABS: Hematocrit (blood only) 25.7 % (37-47); Hemoglobin 8.3 g/dL (12.0-16.0)
[2021-09-19 06:11] LABS: Hematocrit (blood only) 24.2 % (37-47); Hemoglobin 7.6 g/dL (12.0-16.0); Mean Corpuscular Hemoglobin 27.8 pg (25-34); Mean Corpuscular Hgb Conc 31.4 g/dL (32-36); Mean Corpuscular Volume 88.6 fL (80-100); Mean Platelet Volume 9.4 fL (7.4-10.4); Platelet Count 378 K/uL (130-400); RDW Standard Deviation 54.4 fL (36.4-46.3); Red Blood Count 2.73 M/uL (4.2-5.4); White Blood Count 10.16 K/uL (4.8-10.8)
[2021-09-19] MEDS: LEVOTHYROXINE SODIUM 75 MCG TABLET PO SCH (06:16)
[2021-09-19 07:39] LABS: Albumin Globulin Ratio 0.9 (0.9-2); Albumin Level 2.8 gm/dl (3.4-5.0); BUN Creatinine Ratio 9.2 (10-20); Bilirubin,Total 0.4 mg/dl (0.2-1.0); Calcium 8.1 mg/dl (8.5-10.1); Est GFR (African American) 96.1 ml/min; Est GFR (Non-African American) 82.9 ml/min; Globulin 3.2 gm/dl (2.5-4.0)
[2021-09-19] MEDS: CEROVITE ADV FORMULA TAB PO SCH (08:14)
[2021-09-19] MEDS: ATORVASTATIN 40 MG TAB PO SCH (08:14)
[2021-09-19] MEDS: CALCIUM CARBONATE 1,250 MG/5 ML UDC PO SCH ×2 (08:14→21:02)
[2021-09-19] MEDS: predniSONE 5 MG TAB PO SCH (08:14)
[2021-09-19] MEDS: FERROUS SULFATE 325 MG TAB PO SCH ×2 (08:14→21:02)
[2021-09-19] MEDS: PANTOprazole 40 MG TAB PO SCH (08:14)
[2021-09-19] MEDS: HYDROCORTISONE HC 2.5% CRM 30GM TUBE EXT SCH (08:16)
[2021-09-19 09:02] LABS: Potassium 3.6 mmol/L (3.5-5.1)
--- NOTE | 2021-09-19 09:19 | Gastroenterology Progress Note ---
Date of Service September 19, 2021 Assessment & Plan (1) Rectal bleed: Plan: 65 year old female anticoagulated on xarelto admitted w/ painless rectal bleeding, onset one year ago. Had EGD/Colonoscoy at OSH in Fall 2020 which showed esophagitis, hemorrhoids and diverticular disease Hold Xarelto Can continue clear liquids diet Trend HGB Monitor and document stool output Transfuse PRN Start prep at 1700 NPO midnight Plan for colonoscopy Thank you for allowing us to participate in the care of this patient. Please call with any acute changes, questions or concerns. Please see addendum below with additional recommendation from my supervising physician. Admission and Anticipated Discharge Date Admission Date: September 17, 2021 Supervising Physician Co-Signing Physician Notes No acute complaints voiced to me today though aroused from sleeping and sleepy. PE unchanged from yesterday Hgb fluctuation Suspect this is a diverticular bleed Colon tomorrow. She may pass blood which is expected with the prep today. Subjective s/p 2 units rbc hgb this am 7.6 no BUN elevation. No BM this AM Last rectal bleeding was last evening No abd pain or new symptoms CTAP: No acute process within the abdomen or pelvis.Colonic diverticulosis without evidence for acute diverticulitis. No bowel mucosal lesion identified although sensitivity diminished given CT technique. No intraluminal contrast within the bowel. Review of Systems Review of Systems: All systems reviewed & are unremarkable except as noted in HPI & below Physical Exam 2 Respiratory: normal respiratory effort, lungs clear to auscultation Cardiovascular: RRR, no murmur, no edema Gastrointestinal (Abdomen): normal bowel sounds, soft, nontender, no hepatosplenomegaly Skin: no rashes, warm and dry Results & Data ([facility]) Vital Signs (Past 12 Hours) Vital Signs Temp Pulse Pulse Resp BP Pulse Ox 09/19/21 08:00 36.7 C 85 16 125/74 97 09/19/21 03:00 36.7 C 91 H 20 133/76 97 09/19/21 00:00 92 H 09/18/21 22:53 36.9 C 93 H 20 142/73 H 98 Laboratory Results 09/19/21 09/19/21 09/19/21 Range/Units 08:01 05:30 05:30 WBC 10.16 (4.8-10.8) K/uL RBC 2.73 L (4.2-5.4) M/uL Hgb 7.6 L (12.0-16.0) g/dL Hct 24.2 L (37-47) % MCV 88.6 (80-100) fL MCH 27.8 (25-34) pg MCHC 31.4 L (32-36) g/dL RDW Std Deviation 54.4 H (36.4-46.3) fL RDW Coeff of Pete 17.0 H (11.5-14.5) % Plt Count 378 (130-400) K/uL MPV 9.4 (7.4-10.4) fL Sodium 138 (136-145) mmol/L Potassium 3.6 (3.5-5.1) mmol/L Chloride 104 (98-107) mmol/L Carbon Dioxide 28 (21-32) mmol/L Anion Gap 6 (3-11) BUN 7 (6-23) mg/dl Creatinine 0.76 (0.6-1.2) mg/dl Est Cr Clr Drug Dosing 98.0 ml/min Est GFR ( Amer) 96.1 ml/min Est GFR (Non-Af Amer) 82.9 ml/min BUN/Creatinine Ratio 9.2 L (10-20) Glucose 91 (70-99(Fasting)) mg/dl Calcium 8.1 L (8.5-10.1) mg/dl Total Bilirubin 0.4 (0.2-1.0) mg/dl AST 14 (13-39) U/L ALT 12 (7-52) U/L Alkaline Phosphatase 82 (34-104) U/L Total Protein 6.0 (6.0-8.3) gm/dl Albumin 2.8 L (3.4-5.0) gm/dl Globulin 3.2 (2.5-4.0) gm/dl Albumin/Globulin Ratio 0.9 (0.9-2) Hepatitis C Ab Screen (Neg) Blood Type Antibody Screen Crossmatch 09/18/21 09/18/21 09/18/21 Range/Units 20:54 14:36 06:11 WBC (4.8-10.8) K/uL RBC (4.2-5.4) M/uL Hgb 8.3 L 8.1 L (12.0-16.0) g/dL Hct 25.7 L 25.4 L (37-47) % MCV (80-100) fL MCH (25-34) pg MCHC (32-36) g/dL RDW Std Deviation (36.4-46.3) fL RDW Coeff of Pete (11.5-14.5) % Plt Count (130-400) K/uL MPV (7.4-10.4) fL Sodium (136-145) mmol/L Potassium (3.5-5.1) mmol/L Chloride (98-107) mmol/L Carbon Dioxide (21-32) mmol/L Anion Gap (3-11) BUN (6-23) mg/dl Creatinine (0.6-1.2) mg/dl Est Cr Clr Drug Dosing ml/min Est GFR ( Amer) ml/min Est GFR (Non-Af Amer) ml/min BUN/Creatinine Ratio (10-20) Glucose (70-99(Fasting)) mg/dl Calcium (8.5-10.1) mg/dl Total Bilirubin (0.2-1.0) mg/dl AST (13-39) U/L ALT (7-52) U/L Alkaline Phosphatase (34-104) U/L Total Protein (6.0-8.3) gm/dl Albumin (3.4-5.0) gm/dl Globulin (2.5-4.0) gm/dl Albumin/Globulin Ratio (0.9-2) Hepatitis C Ab Screen Neg (Neg) Blood Type Antibody Screen Crossmatch 09/17/21 Range/Units 16:22 WBC (4.8-10.8) K/uL RBC (4.2-5.4) M/uL Hgb (12.0-16.0) g/dL Hct (37-47) % MCV (80-100) fL MCH (25-34) pg MCHC (32-36) g/dL RDW Std Deviation (36.4-46.3) fL RDW Coeff of Pete (11.5-14.5) % Plt Count (130-400) K/uL MPV (7.4-10.4) fL Sodium (136-145) mmol/L Potassium (3.5-5.1) mmol/L Chloride (98-107) mmol/L Carbon Dioxide (21-32) mmol/L Anion Gap (3-11) BUN (6-23) mg/dl Creatinine (0.6-1.2) mg/dl Est Cr Clr Drug Dosing ml/min Est GFR ( Amer) ml/min Est GFR (Non-Af Amer) ml/min BUN/Creatinine Ratio (10-20) Glucose (70-99(Fasting)) mg/dl Calcium (8.5-10.1) mg/dl Total Bilirubin (0.2-1.0) mg/dl AST (13-39) U/L ALT (7-52) U/L Alkaline Phosphatase (34-104) U/L Total Protein (6.0-8.3) gm/dl Albumin (3.4-5.0) gm/dl Globulin (2.5-4.0) gm/dl Albumin/Globulin Ratio (0.9-2) Hepatitis C Ab Screen (Neg) Blood Type O Positive Antibody Screen NEGATIVE Crossmatch See Detail
--- NOTE | 2021-09-19 14:20 | Hospitalist Progress Note ---
Date of Service September 19, 2021 Assessment & Plan (1) Anemia: (2) Diverticulosis: (3) HTN (hypertension): (4) Pulmonary embolism: (5) Recurrent deep vein thrombosis (DVT): (6) Hypothyroidism: (7) PMR (polymyalgia rheumatica): (8) Morbid obesity with BMI of 45.0-49.9, adult: Plan: Acute on chronic blood loss anemia Hematochezia -in setting of being on Xarelto. Xarelto on hold since then. -Hb 6.2--> 7.2 --> 6.9 --> 8.1 ->7.6 s/p 2 U PRBC - No more bleeding. Recheck later today and in am. Transfuse if Hb <7 -Appreciate GI input, plan for bowel prep today and colonoscopy tomorrow Recurrent VTE -on lifelong Xarelto, likely underlying hypercoagulable condition - hold Xarelto, last dose 09/16 evening HTN - BP stable, will resume home antihypertensives when reasonable Hypothyroidism- continue synthroid History of menorrhagia and fibroids-s/p hysterectomy Morbid obesity- BMI 47.5. Weight loss recommended. Follow up with PCP DVT prophylaxis- chemoprophylaxis contraindicated in setting of acute blood loss anemia, SCDs. Resume xarelto when okay from GI Update- She did not want me to update her family Dispo- 1-2 days; colonoscopy tomorrow Admission and Anticipated Discharge Date Admission Date: September 17, 2021 Subjective Feels fine. Had BM this morning but there was no blood. Denies any lightheadedness dizziness, chest pain, shortness of breath. Bowel prep to start today and colonoscopy tomorrow. Physical Exam Physical Exam: General: Sitting comfortably in bed, not in distress, on room air HEENT: EOMI, GERMAN, MMM Chest: Clear breath sounds bilaterally, no wheezes or crackles CVS: Regular rate and rhythm, normal heart sounds, no murmur Abdomen: Soft, non tender, not distended, normal bowel sounds Neuro: Awake, alert, oriented, conversing well, non focal Extremities: No cyanosis, clubbing or edema Results & Data Results & Data ([facility]) Vital Signs (Past 12 Hours) Vital Signs Temp Pulse Resp BP Pulse Ox 09/19/21 11:45 36.5 C 91 H 16 134/73 96 03/16/22 08:00 36.7 C 85 16 125/74 97 09/19/21 03:00 36.7 C 91 H 20 133/76 97 Laboratory Results Short CBC 09/18/21 09/18/21 09/19/21 Range/Units 14:36 20:54 05:30 WBC 10.16 (4.8-10.8) K/uL Hgb 8.1 L 8.3 L 7.6 L (12.0-16.0) g/dL Hct 25.4 L 25.7 L 24.2 L (37-47) % Plt Count 378 (130-400) K/uL BMP 09/19/21 09/19/21 05:30 08:01 Sodium 138 Potassium 3.6 Chloride 104 Carbon Dioxide 28 BUN 7 Creatinine 0.76 Glucose 91 Calcium 8.1 L Liver Function 09/19/21 09/19/21 Range/Units 05:30 08:01 Total Bilirubin 0.4 (0.2-1.0) mg/dl AST 14 (13-39) U/L ALT 12 (7-52) U/L Alkaline Phosphatase 82 (34-104) U/L Albumin 2.8 L (3.4-5.0) gm/dl Medications Administered Current Inpatient Medications Acetaminophen (Acetaminophen 325 Mg Tab) 650 mg PO Q4H PRN PRN Reason: Moderate Pain Stop: 10/17/21 19:14 Atorvastatin Calcium (Atorvastatin 40 Mg Tab) 40 mg PO DAILY MICHELLE Stop: 10/18/21 08:59 Last Admin: 09/19/21 08:14 Dose: 40 mg Documented by: Calcium Carbonate (Calcium Carbonate 1,250 Mg/5 Ml Udc) 1,250 mg PO BID MICHELLE Stop: 09/20/21 08:59 Last Admin: 09/19/21 08:14 Dose: 1,250 mg Documented by: Ferrous Sulfate (Ferrous Sulfate 325 Mg Tab) 325 mg PO BID MICHELLE Stop: 10/17/21 20:59 Last Admin: 09/19/21 08:14 Dose: 325 mg Documented by: Hydrocortisone (Hydrocortisone Hc 2.5% Crm 30gm Tube) 1 appln EXT DAILY MICHELLE Stop: 10/18/21 08:59 Last Admin: 09/19/21 08:16 Dose: 1 appln Documented by: Latanoprost (Latanoprost 0.005% Op Soln 2.5 Ml Btl) 1 drops OPB HS [facility] Stop: 10/17/21 20:59 Last Admin: 09/18/21 20:38 Dose: 1 drops Documented by: Levothyroxine Sodium (Levothyroxine Sodium 75 Mcg Tablet) 75 mcg PO DAILYBB [facility] Stop: 10/18/21 06:29 Last Admin: 09/19/21 06:16 Dose: 75 mcg Documented by: Multivitamins/Minerals (Cerovite Adv Formula Tab) 1 tab PO DAILY [facility] Stop: 10/18/21 08:59 Last Admin: 09/19/21 08:14 Dose: 1 tab Documented by: Ondansetron HCl (Ondansetron Inj 2 Mg/Ml 2 Ml Vial) 4 mg IV Q4H PRN PRN Reason: Nausea And Vomiting Stop: 10/17/21 19:14 Pantoprazole Sodium (Pantoprazole 40 Mg Tab) 40 mg PO DAILY [facility] Stop: 10/18/21 08:59 Last Admin: 09/19/21 08:14 Dose: 40 mg Documented by: Polyethylene Glycol/Electrolytes (Lavage Solution 4000ml) 16 dose PO TODAY@1700 [facility] Stop: 09/19/21 17:01 Prednisone (Prednisone 5 Mg Tab) 5 mg PO DAILY [facility] Stop: 10/18/21 08:59 Last Admin: 09/19/21 08:14 Dose: 5 mg Documented by: (1) Anemia Anemia type: unspecified type Qualified Code(s): D64.9 - Anemia, unspecified (2) Pulmonary embolism Acute cor pulmonale presence: without acute cor pulmonale Chronicity: chronic Pulmonary embolism type: unspecified Qualified Code(s): I27.82 - Chronic pulmo nary embolism
[2021-09-19] MEDS ORDERED: LAVAGE SOLUTION 4000ML PO SCH (17:00)
[2021-09-19 19:24] LABS: Hematocrit (blood only) 27.5 % (37-47); Hemoglobin 8.7 g/dL (12.0-16.0)
[2021-09-19] MEDS: LATANOPROST 0.005% OP SOLN 2.5 ML BTL OPB SCH (21:02)
[2021-09-20] MEDS: LEVOTHYROXINE SODIUM 75 MCG TABLET PO SCH (05:38)
[2021-09-20] MEDS: CEROVITE ADV FORMULA TAB PO SCH (07:42)
[2021-09-20] MEDS: FERROUS SULFATE 325 MG TAB PO SCH ×2 (07:42→21:20)
[2021-09-20] MEDS: predniSONE 5 MG TAB PO SCH (07:42)
[2021-09-20] MEDS: ATORVASTATIN 40 MG TAB PO SCH (07:42)
[2021-09-20] MEDS: PANTOprazole 40 MG TAB PO SCH (07:43)
[2021-09-20] MEDS: HYDROCORTISONE HC 2.5% CRM 30GM TUBE EXT SCH (07:45)
[2021-09-20 08:15] LABS: Albumin Globulin Ratio 0.9 (0.9-2); BUN Creatinine Ratio 8.6 (10-20); Bilirubin,Total 0.4 mg/dl (0.2-1.0); Calcium 8.3 mg/dl (8.5-10.1); Creatinine Clr Calc Pharmacy 92.4 ml/min; Est GFR (Non-African American) 76.8 ml/min; Globulin 3.3 gm/dl (2.5-4.0); Potassium 3.5 mmol/L (3.5-5.1); Total Protein 6.3 gm/dl (6.0-8.3)
--- NOTE | 2021-09-20 10:00 | Anesthesiology Consultation ---
Date of Service September 20, 2021 History Surgery Operation Date: 09/20/21 09:30 Proposed Procedures p Colonoscopy Dr. Morro Hooker MD Height/Weight Height: 5 ft 4 in Weight: 126.5 kg Allergies Allergy/AdvReac Type Severity Reaction Status Date / Time brinzolamide AdvReac Unknown CONJUNCTIVI Unverified 09/20/21 09:48 TIS codeine AdvReac Hallucinati Unverified 09/20/21 09:48 ng Medications Home Medications Medication Instructions Recorded Confirmed Last Taken atorvastatin 40 mg tablet 40 mg PO DAILY 09/17/21 09/17/21 Unknown calcium polycarbophil 625 mg tablet 625 mg PO DAILY 09/17/21 09/17/21 Unknown ferrous sulfate 325 mg (65 mg 325 mg PO BID 09/17/21 09/17/21 Unknown iron) tablet (iron) hydrocortisone 2.5 % topical cream 1 applic NE DAILY 09/17/21 09/17/21 Unknown with perineal applicator latanoprost 0.005 % eye drops 1 drp OPB HS 09/17/21 09/17/21 Unknown levothyroxine 75 mcg tablet 75 mcg PO QAM 09/17/21 09/17/21 Unknown lisinopril 20 1 tab PO DAILY 09/17/21 09/17/21 Unknown mg-hydrochlorothiazide 12.5 mg tablet meloxicam 15 mg tablet 12 mg PO DAILY 09/17/21 09/17/21 Unknown egmdbdbnkkon-Tt-wimw-minerals 1 tab PO DAILY 09/17/21 09/17/21 Unknown omeprazole 40 mg capsule,delayed 40 mg PO DAILY 09/17/21 09/17/21 Unknown release prednisone 10 mg tablet 5 mg PO DAILY 09/17/21 09/17/21 Unknown rivaroxaban 20 mg tablet (Xarelto) 20 mg PO DAILY 09/17/21 09/17/21 Unknown Active Medications Generic Name Dose Route Start Last Admin Trade Name Freq PRN Reason Stop Dose Admin Atorvastatin Calcium 40 mg 09/18/21 09:00 09/20/21 07:42 Atorvastatin 40 Mg Tab PO 10/18/21 08:59 40 mg DAILY MICHELLE Administration Ferrous Sulfate 325 mg 09/17/21 21:00 09/20/21 07:42 Ferrous Sulfate 325 Mg Tab PO 10/17/21 20:59 325 mg BID MICHELLE Administration Hydrocortisone 1 appln 09/18/21 09:00 09/20/21 07:45 Hydrocortisone Hc 2.5% Crm 30gm Tube EXT 10/18/21 08:59 1 appln DAILY MICHELLE Administration Latanoprost 1 drops 09/17/21 21:00 09/19/21 21:02 Latanoprost 0.005% Op Soln 2.5 Ml Btl OPB 10/17/21 20:59 1 drops HS MICHELLE Administration Levothyroxine Sodium 75 mcg 09/18/21 06:30 09/20/21 05:38 Levothyroxine Sodium 75 Mcg Tablet PO 10/18/21 06:29 Not Given DAILYBB MICHELLE Multivitamins/Minerals 1 tab 09/18/21 09:00 09/20/21 07:42 Cerovite Adv Formula Tab PO 10/18/21 08:59 1 tab DAILY MICHELLE Administration Pantoprazole Sodium 40 mg 09/18/21 09:00 09/20/21 07:43 Pantoprazole 40 Mg Tab PO 10/18/21 08:59 40 mg DAILY MICHELLE Administration Prednisone 5 mg 09/18/21 09:00 09/20/21 07:42 Prednisone 5 Mg Tab PO 10/18/21 08:59 5 mg DAILY MICHELLE Administration NPO Date Last Intake of Fluids: 09/20/21 Time Last Intake of Fluids: 07:00 Date Last Intake of Solids: 09/17/21 Time Last Intake of Solids: 12:00 Past Medical History Medical History (Updated 09/20/21 @ 09:59 by Solange Fatima MD) Anemia Diverticulosis DIMAS (dyspnea on exertion) HTN (hypertension) Hypothyroidism Morbid obesity with BMI of 45.0-49.9, adult PMR (polymyalgia rheumatica) Pulmonary embolism Rectal bleed Recurrent deep vein thrombosis (DVT) Thyroid nodule Vaginal bleeding Past Family History Family History Mother Ovarian cancer Grandfather (Maternal) Heart disease Past Surgical History Surgical History S/P hysterectomy Social History Smoking Status: Former smoker Smoking End Date: 2005 Hx Alcohol Use: No Hx Substance Use: No Physical Exam Vital Signs Last Vital Signs Temp 36.5 C 09/20/21 09:49 Pulse 86 09/20/21 09:49 Resp 20 09/20/21 09:49 BP 153/64 H 09/20/21 09:49 Pulse Ox 99 09/20/21 09:49 Testing Laboratory Results 09/19/21 19:14 09/20/21 07:16 PT 10.9 Seconds (9.0-12.0) 09/17/21 16:08 INR 1.0 (0.9-1.1) 09/17/21 16:08 Blood Type O Positive 09/17/21 16:22 Antibody Screen NEGATIVE 09/17/21 16:22 Electrocardiogram Date: 09/17/21 Normal sinus rhythm Prolonged QT Abnormal ECG When compared with ECG of 04-MAR-2016 13:47, QT has lengthened Confirmed by Glenn Burnett ([id number]) on 09/17/2021 9:57:31 PM Chest X-Ray Date: 09/17/21 IMPRESSION: No active disease in the chest.
[2021-09-20] MEDS ORDERED: LIDOCAINE 2% 2 ML VIAL/AMP(20MG/ML) INFIL ONE (10:11)
[2021-09-20] MEDS ORDERED: PROPOFOL IV EMULSION 10 MG/ML 20 ML VIAL IV ONE ×2 (10:11→10:40)
--- NOTE | 2021-09-20 10:11 | History & Physical Bridge Note ---
Date of Service September 20, 2021 History & Physical Bridge Note I have examined the patient, reviewed the History & Physical and in the interval since the performance of the History & Physical I have noted the following changes of clinical significance: no changes noted Abd obese slightly distended and firmer prior to the procedure starting
--- NOTE | 2021-09-20 10:40 | GI REPORT ---
Patient Name: Yumiko Smith Procedure Date: 09/20/2021 10:11 AM Date of : 1955 Admit Type: Inpatient Age: 65 Gender: Female Attending MD: Soraya Hooker M.d. Procedure: Colonoscopy Providers: Soraya Hooker M.d. Referring MD: Darnell Lopez Md Indications: Rectal bleeding Medicines: See anesthesia record Complications: No immediate complications. Estimated Blood Loss: Estimated blood loss: none. Procedure: Pre-Anesthesia Assessment: - Patient identification and proposed procedure were verified prior to the procedure by the physician, the nurse and the anesthesiologist. The procedure was verified in the pre-procedure area. - Prior to the procedure, a History and Physical was performed, and patient medications, allergies and sensitivities were reviewed. The patient's tolerance of previous anesthesia was reviewed. - The risks and benefits of the procedure and the sedation options and risks were discussed with the patient. All questions were answered and informed consent was obtained. After I obtained informed consent, the scope was passed under direct vision. Throughout the procedure, the patient's blood pressure, pulse, and oxygen saturations were monitored continuously. The Colonoscope was introduced through the anus and advanced to the cecum, identified by appendiceal orifice and ileocecal valve. The colonoscopy was somewhat difficult due to poor endoscopic visualization. Successful completion of the procedure was aided by lavage. The patient tolerated the procedure well. The quality of the bowel preparation was fair. Findings: The examined colon appeared normal. Multiple small and large-mouthed diverticula were found in the ascending and sigmoid colon. Itnernal and externalhemorrhoids were found during retroflexion and during perianal exam. Impression: - Preparation of the colon was fair. - The examined colon appeared normal. - Diverticulosis in the acending and sigmoid colon. - Internal and external internal. Recommendation: - Suspect this was a diverticular +/- hemorrhoidal bleed. Inga Hamilton M.d. 09/20/2021 10:40:43 AM This report has been signed electronically. Note Initiated On: 09/20/2021 10:11 AM Number of Addenda: 0 I attest to the content of the Intraoperative Record and orders documented therein, exceptions below {[id number]}
--- NOTE | 2021-09-20 10:42 | Communication Note ---
Date of Service: September 20, 2021 Colonoscopy with findings of ascending and sigmoid diverticula Internal and external hemorrhoids. Suspect this was a diverticular/hemorrhoidal bleed. Would try a daily fiber supplement + miralax. Resume xarelto. Advance diet as tolerated.
--- NOTE | 2021-09-20 12:36 | Anesthesiology Progress Note ---
Date of Service September 20, 2021 Anesthesia Post Procedure Vital Signs Vital Signs: Temp Pulse Pulse Pulse Resp BP Pulse Ox 09/20/21 12:01 36.8 C 71 16 143/79 H 98 09/20/21 11:13 81 16 154/71 H 100 09/20/21 10:58 83 16 156/83 H 98 09/20/21 10:43 83 16 126/67 95 09/20/21 09:49 36.5 C 86 20 153/64 H 99 09/20/21 08:25 89 09/20/21 07:39 36.9 C 83 18 126/76 100 09/20/21 04:53 36.8 C 92 H 18 130/70 99 09/20/21 00:21 36.7 C 85 18 161/82 H 100 09/19/21 23:38 115 H 09/19/21 20:31 36.5 C 96 H 20 159/83 H 100 09/19/21 15:09 36.3 C L 85 15 140/75 100 Transfer of Care Handoff Completed per policy Notes Mental Status: alert / awake / arousable and participated in evaluation Patient Amnestic to Procedure: Yes Nausea / Vomiting: adequately controlled Pain: adequately controlled Airway Patency, RR, SpO2: stable & adequate BP & HR: stable & adequate Hydration State: stable & adequate Anesthetic Complications: no major complications apparent and Pt Satisfied with anesthetic care
[2021-09-20] MEDS ORDERED: IRON SUCROSE 300 MG in SODIUM CHLORIDE 0.9% 250 ML IV ONE (13:00)
--- NOTE | 2021-09-20 15:03 | Hospitalist Progress Note ---
Date of Service September 20, 2021 Assessment & Plan (1) Anemia: (2) Diverticulosis: (3) HTN (hypertension): (4) Pulmonary embolism: (5) Recurrent deep vein thrombosis (DVT): (6) Hypothyroidism: (7) PMR (polymyalgia rheumatica): (8) Morbid obesity with BMI of 45.0-49.9, adult: Plan: Acute on chronic blood loss anemia Hematochezia, likely diverticular+/-hemorrhoidal bleed -in setting of being on Xarelto. Xarelto on hold since then. Okay to resume per GI. Resumed - s/p 2 U of PRBC, Hb 6.2--> 7.2 --> 6.9 --> 8.1 ->7.6->8.7. Hb was not collected this morning. Repeat in am - S/p colonoscopy today which showed ascending and sigmoid diverticula- Ok per GI to start diet and resume xarelto. - Will transfuse iv iron - GI following Recurrent VTE -on lifelong Xarelto, likely underlying hypercoagulable condition - xarelto resumed from today- okay per GI HTN - BP stable, will resume home antihypertensives as BP rebounded Hypothyroidism- continue synthroid History of menorrhagia and fibroids-s/p hysterectomy Morbid obesity- BMI 47.5. Weight loss recommended. Follow up with PCP DVT prophylaxis- xarelto Dispo- discharge likely tomorrow if Hb stable and no more bleeding Admission and Anticipated Discharge Date Admission Date: September 17, 2021 Subjective Feels fine. No new issues. States she had some rectal bleeding while urinating yesterday. Had colonoscopy today which showed some diverticula. She says she was supposed to get her iv iron infusion as outpatient on Friday but was here admitted. Denies any chest pain, shortness of breath, nausea, vomiting, lightheadedness. Tolerated diet well without issues. Physical Exam Physical Exam: General: Sitting comfortably in bed, not in distress, on room air HEENT: EOMI, GERMAN, MMM Chest: Clear breath sounds bilaterally, no wheezes or crackles CVS: Regular rate and rhythm, normal heart sounds, no murmur Abdomen: Soft, non tender, not distended, normal bowel sounds Neuro: Awake, alert, oriented, conversing well, non focal Extremities: No cyanosis, clubbing or edema Results & Data Results & Data ([facility] [place]) Vital Signs (Past 12 Hours) Vital Signs Temp Pulse Pulse Pulse Resp BP Pulse Ox 09/20/21 12:01 36.8 C 71 16 143/79 H 98 09/20/21 11:13 81 16 154/71 H 100 09/20/21 10:58 83 16 156/83 H 98 09/20/21 10:43 83 16 126/67 95 09/20/21 09:49 36.5 C 86 20 153/64 H 99 09/20/21 08:25 89 09/20/21 07:39 36.9 C 83 18 126/76 100 09/20/21 04:53 36.8 C 92 H 18 130/70 99 Laboratory Results Short CBC 09/19/21 Range/Units 19:14 Hgb 8.7 L (12.0-16.0) g/dL Hct 27.5 L (37-47) % BMP 09/20/21 07:16 Sodium 140 Potassium 3.5 Chloride 105 Carbon Dioxide 30 BUN 7 Creatinine 0.81 Glucose 94 Calcium 8.3 L Liver Function 09/20/21 Range/Units 07:16 Total Bilirubin 0.4 (0.2-1.0) mg/dl AST 15 (13-39) U/L ALT 12 (7-52) U/L Alkaline Phosphatase 91 (34-104) U/L Albumin 3.0 L (3.4-5.0) gm/dl Medications Administered Current Inpatient Medications Acetaminophen (Acetaminophen 325 Mg Tab) 650 mg PO Q4H PRN PRN Reason: Moderate Pain Stop: 10/17/21 19:14 Atorvastatin Calcium (Atorvastatin 40 Mg Tab) 40 mg PO DAILY MICHELLE Stop: 10/18/21 08:59 Last Admin: 09/20/21 07:42 Dose: 40 mg Documented by: Ferrous Sulfate (Ferrous Sulfate 325 Mg Tab) 325 mg PO BID MICHELLE Stop: 10/17/21 20:59 Last Admin: 09/20/21 07:42 Dose: 325 mg Documented by: Hydrocortisone (Hydrocortisone Hc 2.5% Crm 30gm Tube) 1 appln EXT DAILY MICHELLE Stop: 10/18/21 08:59 Last Admin: 09/20/21 07:45 Dose: 1 appln Documented by: Latanoprost (Latanoprost 0.005% Op Soln 2.5 Ml Btl) 1 drops OPB HS MICHELLE Stop: 10/17/21 20:59 Last Admin: 09/19/21 21:02 Dose: 1 drops Documented by: Levothyroxine Sodium (Levothyroxine Sodium 75 Mcg Tablet) 75 mcg PO DAILYBB MICHELLE Stop: 10/18/21 06:29 Last Admin: 09/20/21 05:38 Dose: Not Given Documented by: Multivitamins/Minerals (Cerovite Adv Formula Tab) 1 tab PO DAILY MICHELLE Stop: 10/18/21 08:59 Last Admin: 09/20/21 07:42 Dose: 1 tab Documented by: Ondansetron HCl (Ondansetron Inj 2 Mg/Ml 2 Ml Vial) 4 mg IV Q4H PRN PRN Reason: Nausea And Vomiting Stop: 10/17/21 19:14 Pantoprazole Sodium (Pantoprazole 40 Mg Tab) 40 mg PO DAILY MICHELLE Stop: 10/18/21 08:59 Last Admin: 09/20/21 07:43 Dose: 40 mg Documented by: Prednisone (Prednisone 5 Mg Tab) 5 mg PO DAILY MICHELLE Stop: 10/18/21 08:59 Last Admin: 09/20/21 07:42 Dose: 5 mg Documented by: Rivaroxaban (Rivaroxaban 20 Mg Tab) 20 mg PO Q24H [facility] Stop: 10/20/21 16:59 (1) Anemia Anemia type: unspecified type Qualified Code(s): D64.9 - Anemia, unspecified (2) Pulmonary embolism Acute cor pulmonale presence: without acute cor pulmonale Chronicity: chronic Pulmonary embolism type: unspecified Qualified Code(s): I27.82 - Chronic pulmonary embolism
[2021-09-20] MEDS: lisinopril 20 MG TAB PO SCH (16:16)
[2021-09-20] MEDS: RIVAROXABAN 20 MG TAB PO SCH (16:17)
[2021-09-20] MEDS: LATANOPROST 0.005% OP SOLN 2.5 ML BTL OPB SCH (21:20)
[2021-09-21] MEDS: SODIUM CHLORIDE 0.9% 1000ML 1,000 ML IV SCH ×2 (00:42→13:30)
[2021-09-21 01:19] LABS: Hematocrit (blood only) 25.1 % (37-47); Hemoglobin 7.7 g/dL (12.0-16.0)
[2021-09-21] MEDS: LEVOTHYROXINE SODIUM 75 MCG TABLET PO SCH (06:30)
[2021-09-21 07:58] LABS: Basophils # (auto) 0.01 K/uL (0-0.2); Basophils % (auto) 0.1 %; Eosinophils # (auto) 0.22 K/uL (0-0.5); Eosinophils % (auto) 2.1 %; Hematocrit (blood only) 24.9 % (37-47); Hemoglobin 7.7 g/dL (12.0-16.0); Immature Granulocytes # (auto) 0.04 K/uL (0.00-0.02); Immature Granulocytes % (auto) 0.4 %; Lymphocytes # (auto) 2.56 K/uL (1.2-3.4); Lymphocytes % (auto) 24.4 %; Mean Corpuscular Hgb Conc 30.9 g/dL (32-36); Mean Corpuscular Volume 90.5 fL (80-100); Mean Platelet Volume 9.1 fL (7.4-10.4); Monocytes # (auto) 0.62 K/uL (0.11-0.59); Monocytes % (auto) 5.9 %; Neutrophils # (auto) 7.03 K/uL (1.4-6.5); Neutrophils % (auto) 67.1 %; Platelet Count 444 K/uL (130-400); RDW Coefficient of Variation 16.6 % (11.5-14.5); RDW Standard Deviation 54.6 fL (36.4-46.3); Red Blood Count 2.75 M/uL (4.2-5.4); White Blood Count 10.48 K/uL (4.8-10.8)
[2021-09-21] MEDS: HYDROCORTISONE HC 2.5% CRM 30GM TUBE EXT SCH (09:06)
[2021-09-21] MEDS: lisinopril 20 MG TAB PO SCH (09:06)
[2021-09-21] MEDS: ATORVASTATIN 40 MG TAB PO SCH (09:07)
[2021-09-21] MEDS: PANTOprazole 40 MG TAB PO SCH (09:07)
[2021-09-21] MEDS: FERROUS SULFATE 325 MG TAB PO SCH ×2 (09:07→21:50)
[2021-09-21] MEDS: predniSONE 5 MG TAB PO SCH (09:07)
[2021-09-21] MEDS: CEROVITE ADV FORMULA TAB PO SCH (09:07)
--- NOTE | 2021-09-21 11:14 | Gastroenterology Progress Note ---
Date of Service September 21, 2021 Assessment & Plan (1) Rectal bleed: Plan: 65 year old female anticoagulated on xarelto admitted w/ painless rectal bleeding, onset one year ago. Had EGD/Colonoscoy at OSH in Fall 2020 which showed esophagitis, hemorrhoids and diverticular disease. Colonoscopy yesterday with divertiuclar disease and hemorrhiods. GI made aware of large volume hematochezia this AM with clots Bleeding scan If positive can transfer for IR evaluation If negative, continue with plan per previous notes plan and OP colorectal evaluation Thank you for allowing us to participate in the care of this patient. Please call with any acute changes, questions or concerns. Please see addendum below with additional recommendation from my supervising physician. Admission and Anticipated Discharge Date Admission Date: September 17, 2021 Supervising Physician Co-Signing Physician Notes I saw and evaluated the patient. We were reconsulted for evaluation of recurrent hematochezia. The patient did have a colonoscopy yesterday with one of my partners notable for diverticulosis of the left colon and hemorrhoids. Based on the patient's description we wonder about an anorectal etiology as she does have formed bowel movements with blood around, in the toilet water and on tissue paper Recommendations Consider a tagged RBC study If negative would recommend outpatient evaluation by colorectal surgery Therefore diverticular hemorrhage would then recommend referral to a tertiary center with interventional radiology Subjective GI asked to re-evaluate for rectal bleeding Large episode with associated clots this AM Colonoscopy yesterday reviewed. Review of Systems Review of Systems: All systems reviewed & are unremarkable except as noted in HPI & below Physical Exam Constitutional: WD/WN, vitals as above Neck: trachea midline, no thyromegaly Respiratory: normal respiratory effort, lungs clear to auscultation Cardiovascular: RRR, no murmur, no edema Gastrointestinal (Abdomen): normal bowel sounds, soft, nontender, no hepatosplenomegaly Skin: no rashes, warm and dry Results & Data ([facility]) Vital Signs (Past 12 Hours) Vital Signs Temp Pulse Pulse Resp BP Pulse Ox 09/21/21 08:11 87 09/21/21 08:00 36.7 C 84 18 132/75 99 09/21/21 02:46 36.9 C 89 18 124/72 98 09/20/21 23:48 93 H
--- NOTE | 2021-09-21 14:36 | Cardiology Consultation ---
Date of Consultation September 21, 2021 Assessment & Plan (1) Recurrent deep vein thrombosis (DVT): (2) Pulmonary emboli: (3) Rectal bleeding: (4) Anemia: (5) Mobitz II: The patient had 1 very brief episode of Mobitz type II heart block. Otherwise she has been in normal sinus rhythm. She does describe several weeks ago having a syncopal episode. The information and history around that event is uncertain and she may have been bleeding at the time. Presently, I would leave her on telemetry and we will follow. I have ordered an echocardiogram to rule out structural heart disease. History of Present Illness Attending Physician: Darnell Lopez MD History of Present Illness This is a pleasant 65-year-old female who has a history of DVT and pulmonary e mboli and had been chronically anticoagulated with Xarelto. She has had problems with GI bleeding and hematochezia resulting in anemia. She has no significant cardiac history. No previous history of coronary artery disease, congestive heart failure or cardiac arrhythmias. She has been admitted onto telemetry. Majority of her time on telemetry has been normal sinus rhythm. She had one 3 beat episode of Mobitz type II heart block which is of course asymptomatic. We were asked to see her in regard to the arrhythmia. She has no ongoing cardiac complaints however several weeks ago she describes a syncopal event. She was sitting in a chair and passed out for few seconds. Uncertain as to whether this was related to the GI bleeding and her anemia but she recovered fully and has not had any additional syncope or presyncope. She denies dizziness or lightheadedness. Allergies Allergy/AdvReac Type Severity Reaction Status Date / Time brinzolamide AdvReac Intermediate CONJUNCTIVI Verified 09/20/21 12:45 TIS codeine AdvReac Mild Hallucinati Verified 09/20/21 12:45 ng Home Medications Medication Instructions Recorded Confirmed Type atorvastatin 40 mg tablet 40 mg PO DAILY 09/17/21 09/17/21 History calcium polycarbophil 625 mg tablet 625 mg PO DAILY 09/17/21 09/17/21 History ferrous sulfate 325 mg (65 mg 325 mg PO BID 09/17/21 09/17/21 History iron) tablet (iron) hydrocortisone 2.5 % topical cream 1 applic CO DAILY 09/17/21 09/17/21 History with perineal applicator latanoprost 0.005 % eye drops 1 drp OPB HS 09/17/21 09/17/21 History levothyroxine 75 mcg tablet 75 mcg PO QAM 09/17/21 09/17/21 History lisinopril 20 1 tab PO DAILY 09/17/21 09/17/21 History mg-hydrochlorothiazide 12.5 mg tablet meloxicam 15 mg tablet 12 mg PO DAILY 09/17/21 09/17/21 History eojwottdhbrd-Jl-nnkt-minerals 1 tab PO DAILY 09/17/21 09/17/21 History omeprazole 40 mg capsule,delayed 40 mg PO DAILY 09/17/21 09/17/21 History release prednisone 10 mg tablet 5 mg PO DAILY 09/17/21 09/17/21 History rivaroxaban 20 mg tablet (Xarelto) 20 mg PO DAILY 09/17/21 09/17/21 History Patient History Medical History Anemia Diverticulosis DIMAS (dyspnea on exertion) HTN (hypertension) Hypothyroidism Morbid obesity with BMI of 45.0-49.9, adult PMR (polymyalgia rheumatica) Pulmonary embolism Rectal bleed Recurrent deep vein thrombosis (DVT) Thyroid nodule Vaginal bleeding Surgical History S/P hysterectomy Family History Mother Ovarian cancer Grandfather (Maternal) Heart disease Social History Smoking Status: Former smoker packs per day: 1; Years Smoked: 23; Smoking End Date: 2005; Hx Alcohol Use: No Hx Substance Use: No Preferred Language: [place] Communication Ability: Effective Commercial Subcontractor Required: No Beliefs That Will Affect Care: None marital status: Current Living Situation: Spouse How many Children do You have: 1 Other Information That Helps Us Care for You: No Feels Safe at Home: Yes Safety Concerns: Feels Safe At This Time Assistive Devices: Glasses Review of Systems Review of Systems: Review of Systems: See HPI for pertinent positives. All other 10 point review of systems are negative. Physical Exam Physical Exam: General: no acute distress and stated age Head: normocephalic, no masses, lesions, tenderness or abnormalities Eyes: conjunctiva are pink and non-injected, sclera clear Neck: supple, no adenopathy, no bruits, normal jugular venous pulse, no hepa tojugular reflux Chest: normal shape and normal respiratory effort Lungs: clear to auscultation and percussion Cardiac Exam: - regular rate & rhythm, no murmurs gallops or rubs - normal S1, normal S2 Pulses: 2(+) throughout Abdomen: abdomen soft, non-tender, no abnormal masses and no hepatosplenomegaly Musculoskeletal: no gait disturbance, no joint inflammation, no deforming arthritis Extremities: no edema and no cyanosis Neuro: grossly normal exam Results & Data ([facility] [place]) Vital Signs (Past 12 Hours) Vital Signs Temp Pulse Pulse Pulse Resp BP Pulse Ox 09/21/21 11:11 83 16 138/75 95 09/21/21 08:11 87 09/21/21 08:00 36.7 C 84 18 132/75 99 09/21/21 02:46 36.9 C 89 18 124/72 98 Laboratory Results Laboratory Results - last 24 hr 09/21/21 09/21/21 00:56 07:08 WBC 10.48 RBC 2.75 L Hgb 7.7 L 7.7 L Hct 25.1 L 24.9 L MCV 90.5 MCH 28.0 MCHC 30.9 L RDW Std Deviation 54.6 H RDW Coeff of Pete 16.6 H Plt Count 444 H MPV 9.1 Immature Gran % (Auto) 0.4 Neut % (Auto) 67.1 Lymph % (Auto) 24.4 [place] % (Auto) 5.9 Eos % (Auto) 2.1 Baso % (Auto) 0.1 Neut # (Auto) 7.03 H Lymph # (Auto) 2.56 [place] # (Auto) 0.62 H Eos # (Auto) 0.22 Baso # (Auto) 0.01 Immature Gran # (Auto) 0.04 H Medications Administered Current Inpatient Medications Acetaminophen (Acetaminophen 325 Mg Tab) 650 mg PO Q4H PRN PRN Reason: Moderate Pain Stop: 10/17/21 19:14 Atorvastatin Calcium (Atorvastatin 40 Mg Tab) 40 mg PO DAILY MICHELLE Stop: 10/18/21 08:59 Last Admin: 09/21/21 09:07 Dose: 40 mg Documented by: Ferrous Sulfate (Ferrous Sulfate 325 Mg Tab) 325 mg PO BID MICHELLE Stop: 10/17/21 20:59 Last Admin: 09/21/21 09:07 Dose: 325 mg Documented by: Hydrocortisone (Hydrocortisone Hc 2.5% Crm 30gm Tube) 1 appln EXT DAILY MICHELLE Stop: 10/18/21 08:59 Last Admin: 09/21/21 09:06 Dose: 1 appln Documented by: Sodium Chloride (Nss 1000ml) 1,000 mls @ 100 mls/hr IV .Q10H MICHELLE Stop: 10/21/21 00:29 Last Admin: 09/21/21 13:30 Dose: 100 mls/hr Documented by: Latanoprost (Latanoprost 0.005% Op Soln 2.5 Ml Btl) 1 drops OPB HS MICHELLE Stop: 10/17/21 20:59 Last Admin: 09/20/21 21:20 Dose: 1 drops Documented by: Levothyroxine Sodium (Levothyroxine Sodium 75 Mcg Tablet) 75 mcg PO DAILYBB MICHELLE Stop: 10/18/21 06:29 Last Admin: 09/21/21 06:30 Dose: 75 mcg Documented by: Lisinopril (Lisinopril 20 Mg Tab) 20 mg PO DAILY MICHELLE Stop: 10/20/21 15:29 Last Admin: 09/21/21 09:06 Dose: 20 mg Documented by: Multivitamins/Minerals (Cerovite Adv Formula Tab) 1 tab PO DAILY MICHELLE Stop: 10/18/21 08:59 Last Admin: 09/21/21 09:07 Dose: 1 tab Documented by: Ondansetron HCl (Ondansetron Inj 2 Mg/Ml 2 Ml Vial) 4 mg IV Q4H PRN PRN Reason: Nausea And Vomiting Stop: 10/17/21 19:14 Pantoprazole Sodium (Pantoprazole 40 Mg Tab) 40 mg PO DAILY MICHELLE Stop: 10/18/21 08:59 Last Admin: 09/21/21 09:07 Dose: 40 mg Documented by: Prednisone (Prednisone 5 Mg Tab) 5 mg PO DAILY MICHELLE Stop: 10/18/21 08:59 Last Admin: 09/21/21 09:07 Dose: 5 mg Documented by: Rivaroxaban (Rivaroxaban 20 Mg Tab) 20 mg PO Q24H MICHELLE Stop: 10/20/21 16:59 Last Admin: 09/20/21 16:17 Dose: 20 mg Documented by:
--- NOTE | 2021-09-21 17:06 | Nuclear Medicine Report ---
NUCLEAR GI BLEEDING SCAN CLINICAL HISTORY: Bright red blood per rectum of one years duration. Anemia. COMPARISON STUDY: Abdominal CT dated 09/18/2021.. TECHNIQUE: Following the IV administration of 28.4 mCi of technetium 99m UltraTag labeled red blood c ells, nuclear bleeding scan was performed. Anterior flow images were obtained every 2 seconds for a t otal 58 seconds. Anterior static images were obtained every 5 minutes for a total of 60 minutes. FINDINGS: There is no abnormal tracer deposition identified typical for active GI bleeding. There is expected t racer activity within the abdominal aorta and iliac vessels, the liver, and within the bladder. IMPRESSION: There is no scintigraphic evidence of active GI bleeding at the time of examination. ACT 112: Negative or not required by law. Electronically signed by: Amos Mcdaniel M.D. 09/21/2021 5:05 PM
--- NOTE | 2021-09-21 18:31 | Hospitalist Progress Note ---
Date of Service September 21, 2021 Assessment & Plan (1) Anemia: (2) Diverticulosis: (3) HTN (hypertension): (4) Pulmonary embolism: (5) Recurrent deep vein thrombosis (DVT): (6) Hypothyroidism: (7) PMR (polymyalgia rheumatica): (8) Morbid obesity with BMI of 45.0-49.9, adult: Plan: Acute on chronic blood loss anemia Hematochezia, likely diverticular+/-hemorrhoidal bleed - Recurrent large volume hematochezia with clots today, however bleeding scan today 09/21 was negative. Xarelto has been held again. - S/p colonoscopy 09/20 which showed ascending and sigmoid diverticula- Ok per GI to start diet and resume xarelto. - s/p 2 U of PRBC, Hb 6.2--> 7.2 --> 6.9 --> 8.1 ->7.6->8.7. S/p iron transfusion x1. - Seen by GI- recommendations noted. Trend H&H and transfuse if <7 or symtomatic. Recurrent VTE -on lifelong Xarelto, likely underlying hypercoagulable condition - xarelto held today due to hematochezia HTN - BP stable, continue antihypertensives with hold parameter Mobitz type2- brief episode, asymptomatic, seen in tele. Seen by cardio. Echo ordered. Hypothyroidism- continue synthroid History of menorrhagia and fibroids-s/p hysterectomy Morbid obesity- BMI 47.5. Weight loss recommended. Follow up with PCP DVT prophylaxis- xarelto Dispo- Medsurg. Monitoring bleeding and Hb. Echo pending. Admission and Anticipated Discharge Date Admission Date: September 17, 2021 Subjective She had multiple episodes of hematochezia today with some clots. Denies any lightheadedness, dizziness, chest pain, shortness of breath. No other new issues. Physical Exam Physical Exam: General: Sitting comfortably in bed, not in distress, on room air HEENT: EOMI, GERMAN, MMM Chest: Clear breath sounds bilaterally, no wheezes or crackles CVS: Regular rate and rhythm, normal heart sounds, no murmur Abdomen: Soft, non tender, not distended, normal bowel sounds Neuro: Awake, alert, oriented, conversing well, non focal Extremities: No cyanosis, clubbing or edema Results & Data Results & Data ([facility]) Vital Signs (Past 12 Hours) Vital Signs Temp Pulse Pulse Pulse Resp BP Pulse Ox 09/21/21 15:13 36.8 C 85 19 129/74 98 09/21/21 14:46 83 09/21/21 11:11 83 16 138/75 95 09/21/21 08:11 87 09/21/21 08:00 36.7 C 84 18 132/75 99 Laboratory Results Short CBC 09/21/21 09/21/21 Range/Units 00:56 07:08 WBC 10.48 (4.8-10.8) K/uL Hgb 7.7 L 7.7 L (12.0-16.0) g/dL Hct 25.1 L 24.9 L (37-47) % Plt Count 444 H (130-400) K/uL Diagnostic Findings GI Bleed Scan Nuclear Medicine 09/21/21 11:10 NUCLEAR GI BLEEDING SCAN CLINICAL HISTORY: Bright red blood per rectum of one years duration. Anemia. COMPARISON STUDY: Abdominal CT dated 09/18/2021.. TECHNIQUE: Following the IV administration of 28.4 mCi of technetium 99m UltraTag labeled red blood cells, nuclear bleeding scan was performed. Anterior flow images were obtained every 2 seconds for a total 58 seconds. Anterior static images were obtained every 5 minutes for a total of 60 minutes. FINDINGS: There is no abnormal tracer deposition identified typical for active GI bleeding. There is expected tracer activity within the abdominal aorta and iliac vessels, the liver, and within the bladder. IMPRESSION: There is no scintigraphic evidence of active GI bleeding at the time of examination. ACT 112: Negative or not required by law. Electronically signed by: Amos Mcdaniel M.D. 09/21/2021 5:05 PM Medications Administered Current Inpatient Medications Acetaminophen (Acetaminophen 325 Mg Tab) 650 mg PO Q4H PRN PRN Reason: Moderate Pain Stop: 10/17/21 19:14 Atorvastatin Calcium (Atorvastatin 40 Mg Tab) 40 mg PO DAILY MICHELLE Stop: 10/18/21 08:59 Last Admin: 09/21/21 09:07 Dose: 40 mg Documented by: Ferrous Sulfate (Ferrous Sulfate 325 Mg Tab) 325 mg PO BID MICHELLE Stop: 10/17/21 20:59 Last Admin: 09/21/21 09:07 Dose: 325 mg Documented by: Hydrocortisone (Hydrocortisone Hc 2.5% Crm 30gm Tube) 1 appln EXT DAILY MICHELLE Stop: 10/18/21 08:59 Last Admin: 09/21/21 09:06 Dose: 1 appln Documented by: Sodium Chloride (Nss 1000ml) 1,000 mls @ 100 mls/hr IV .Q10H MICHELLE Stop: 10/21/21 00:29 Last Admin: 09/21/21 13:30 Dose: 100 mls/hr Documented by: Latanoprost (Latanoprost 0.005% Op Soln 2.5 Ml Btl) 1 drops OPB HS MICHELLE Stop: 10/17/21 20:59 Last Admin: 09/20/21 21:20 Dose: 1 drops Documented by: Levothyroxine Sodium (Levothyroxine Sodium 75 Mcg Tablet) 75 mcg PO DAILYBB MICHELLE Stop: 10/18/21 06:29 Last Admin: 09/21/21 06:30 Dose: 75 mcg Documented by: Lisinopril (Lisinopril 20 Mg Tab) 20 mg PO DAILY MICHELLE Stop: 10/20/21 15:29 Last Admin: 09/21/21 09:06 Dose: 20 mg Documented by: Multivitamins/Minerals (Cerovite Adv Formula Tab) 1 tab PO DAILY MICHELLE Stop: 10/18/21 08:59 Last Admin: 09/21/21 09:07 Dose: 1 tab Documented by: Ondansetron HCl (Ondansetron Inj 2 Mg/Ml 2 Ml Vial) 4 mg IV Q4H PRN PRN Reason: Nausea And Vomiting Stop: 10/17/21 19:14 Pantoprazole Sodium (Pantoprazole 40 Mg Tab) 40 mg PO DAILY MICHLELE Stop: 10/18/21 08:59 Last Admin: 09/21/21 09:07 Dose: 40 mg Documented by: Prednisone (Prednisone 5 Mg Tab) 5 mg PO DAILY MICHELLE Stop: 10/18/21 08:59 Last Admin: 09/21/21 09:07 Dose: 5 mg Documented by: Rivaroxaban (Rivaroxaban 20 Mg Tab) 20 mg PO Q24H MICHELLE Stop: 10/20/21 16:59 Last Admin: 09/20/21 16:17 Dose: 20 mg Documented by: (1) Anemia Anemia type: unspecified type Qualified Code(s): D64.9 - Anemia, unspecified (2) Pulmonary embolism Acute cor pulmonale presence: without acute cor pulmonale Chronicity: chronic Pulmonary embolism type: unspecified Qualified Code(s): I27.82 - Chronic pulmonary embolism
[2021-09-21 19:21] LABS: Hematocrit (blood only) 25.7 % (37-47)
[2021-09-21] MEDS: LATANOPROST 0.005% OP SOLN 2.5 ML BTL OPB SCH (21:50)
[2021-09-22] MEDS: LEVOTHYROXINE SODIUM 75 MCG TABLET PO SCH (05:56)
[2021-09-22 07:52] LABS: Hematocrit (blood only) 23.5 % (37-47); Hemoglobin 7.3 g/dL (12.0-16.0); Mean Corpuscular Hemoglobin 28.3 pg (25-34); Mean Corpuscular Hgb Conc 31.1 g/dL (32-36); Mean Corpuscular Volume 91.1 fL (80-100); Platelet Count 402 K/uL (130-400); RDW Standard Deviation 56.1 fL (36.4-46.3); Red Blood Count 2.58 M/uL (4.2-5.4); White Blood Count 10.58 K/uL (4.8-10.8)
[2021-09-22 08:22] LABS: BUN Creatinine Ratio 7.4 (10-20); Calcium 7.8 mg/dl (8.5-10.1); Creatinine Clr Calc Pharmacy 92.5 ml/min; Est GFR (Non-African American) 76.8 ml/min; Magnesium 2.4 mg/dl (1.7-2.4); Phosphorus 4.4 mg/dl (2.5-4.9); Potassium 3.5 mmol/L (3.5-5.1)
[2021-09-22] MEDS: FERROUS SULFATE 325 MG TAB PO SCH ×2 (09:40→20:57)
[2021-09-22] MEDS: predniSONE 5 MG TAB PO SCH (09:40)
[2021-09-22] MEDS: CEROVITE ADV FORMULA TAB PO SCH (09:41)
[2021-09-22] MEDS: lisinopril 20 MG TAB PO SCH (09:41)
[2021-09-22] MEDS: ATORVASTATIN 40 MG TAB PO SCH (09:41)
[2021-09-22] MEDS: PANTOprazole 40 MG TAB PO SCH (09:41)
[2021-09-22] MEDS: HYDROCORTISONE HC 2.5% CRM 30GM TUBE EXT SCH (10:28)
[2021-09-22] MEDS ORDERED: IRON SUCROSE 400 MG in SODIUM CHLORIDE 0.9% 250 ML IV ONE (12:00)
[2021-09-22] MEDS: ACETAMINOPHEN 325 MG TAB PO PRN (12:05)
--- NOTE | 2021-09-22 15:35 | Cardiology Progress Note ---
Date of Service September 22, 2021 Assessment & Plan (1) Anemia: Plan: Rectal bleeding. Nuclear bleeding scan negative. BP , Hg stable. (2) Mobitz II: Plan: Very brief episode of 2:1 AV block on 09/21/21 , asymptomatic, 3 dropped QRS complexes. She did however, have an episode of prolong lethargy and syncope at home of 09/04, including loss of consciousness episode with trauma and broken nose. This could have been bradycardia related, however also took place in setting of profound anemia. Continue to monitor on telemetry while in hospital. Will need outpatient Zio monitor for 2 weeks , or even consideration of loop recorder at [place]. (3) Pulmonary emboli: Plan: h/o VTE. Xarelto on hold. Admission and Anticipated Discharge Date Admission Date: September 17, 2021 Subjective Patient seen in follow up of transient bradycardia. Denies cardiac symptoms. Physical Exam Constitutional: WD/WN, vitals as above Respiratory: normal respiratory effort, lungs clear to auscultation Cardiovascular: RRR, no murmur, no edema Gastrointestinal (Abdomen): normal bowel sounds, soft, nontender, no hepatosplenomegaly Neurologic: PERRL, EOMI, accommodation nl, no face palsy, no dysarthria Results & Data ([facility]) Vital Signs (Past 12 Hours) Vital Signs Temp Pulse Resp BP Pulse Ox 09/22/21 11:46 36.8 C 86 18 158/75 H 98 09/22/21 07:49 36.9 C 85 20 128/74 97 Laboratory Results CBC 09/21/21 09/22/21 Range/Units 18:45 07:06 WBC 10.58 (4.8-10.8) K/uL RBC 2.58 L (4.2-5.4) M/uL Hgb 8.0 L 7.3 L (12.0-16.0) g/dL Hct 25.7 L 23.5 L (37-47) % Plt Count 402 H (130-400) K/uL Comprehensive Metabolic Panel 09/22/21 Range/Units 07:06 Sodium 141 (136-145) mmol/L Potassium 3.5 (3.5-5.1) mmol/L Chloride 109 H (98-107) mmol/L Carbon Dioxide 28 (21-32) mmol/L BUN 6 (6-23) mg/dl Creatinine 0.81 (0.6-1.2) mg/dl Glucose 87 (70-99(Fasting)) mg/dl Calcium 7.8 L (8.5-10.1) mg/dl Intake and Output 09/22/21 09/22/21 09/22/21 06:59 14:59 22:59 Intake Total 240 / 1640.000 456.25 / 456.25 Balance 240 / 1640.000 456.25 / 456.25 Intake: IV 456.25 / 456.25 Iron Sucrose 400 mg In Sodium 270 / 270 Chloride 0.9% 250 ml @ 108 mls/ hr IV TODAY@1200 ONE Rx#: [id number] Sodium Chloride 0.9% 1000ML 1, 186.25 / 186.25 000 ml @ 75 mls/hr IV .[id number] [facility] Rx#:[id number] Oral 240 / 440 Other: # Unmeasured Voids 1 Weight 126.7 kg Weight Measurement Method Built in [facility]
--- NOTE | 2021-09-22 16:00 | Hospitalist Progress Note ---
Date of Service September 22, 2021 Assessment & Plan (1) Anemia: (2) Diverticulosis: (3) HTN (hypertension): (4) Pulmonary embolism: (5) Recurrent deep vein thrombosis (DVT): (6) Hypothyroidism: (7) PMR (polymyalgia rheumatica): (8) Morbid obesity with BMI of 45.0-49.9, adult: Plan: Acute on chronic blood loss anemia Hematochezia, likely diverticular+/-hemorrhoidal bleed - No bleeding or bowel movement since yesterday evening - Nuclear bleeding scan 09/21 was negative. - S/p colonoscopy 09/20 which showed ascending and sigmoid diverticula- Ok per GI to start diet and resume xarelto. - s/p 2 U of PRBC, Hb 6.2--> 7.2 --> 6.9 --> 8.1 ->7.6->8.7. - S/p iron transfusion x2. - Seen by GI- recommendations noted. - Trend H&H and transfuse if <7 or symptomatic. - Resume xarelto today unless bleeding Recurrent VTE -on lifelong Xarelto, likely underlying hypercoagulable condition - will resume xarelto today unless bleeding HTN - BP stable, continue antihypertensives with hold parameter Mobitz type2- brief episode, asymptomatic, seen in tele. Seen by cardio. Echo unremarkable except for grade II diastolic dysfunction. Recommended OP zio x2 weeks or even loop recorder Hypothyroidism- continue synthroid History of menorrhagia and fibroids-s/p hysterectomy Morbid obesity- BMI 47.5. Weight loss recommended. Follow up with PCP DVT prophylaxis- xarelto Dispo- Medsurg. Monitoring bleeding and Hb. Xarelto to resume today. Admission and Anticipated Discharge Date Admission Date: September 17, 2021 Subjective No rectal bleeding or bowel movement since yesterday evening. Tolerating clears well. No nausea, vomiting. Asymptomatic from anemia. Physical Exam Physical Exam: General: Sitting comfortably in bed, not in distress, on room air HEENT: EOMI, GERMAN, MMM Chest: Clear breath sounds bilaterally, no wheezes or crackles CVS: Regular rate and rhythm, normal heart sounds, no murmur Abdomen: Soft, non tender, not distended, normal bowel sounds Neuro: Awake, alert, oriented, conversing well, non focal Extremities: No cyanosis, clubbing or edema Results & Data Results & Data ([facility]) Vital Signs (Past 12 Hours) Vital Signs Temp Pulse Pulse Resp BP Pulse Ox 09/22/21 15:45 36.7 C 20 129/70 97 09/22/21 15:42 86 09/22/21 11:46 36.8 C 86 18 158/75 H 98 09/22/21 08:00 82 09/22/21 07:49 36.9 C 85 20 128/74 97 Laboratory Results Short CBC 09/21/21 09/22/21 Range/Units 18:45 07:06 WBC 10.58 (4.8-10.8) K/uL Hgb 8.0 L 7.3 L (12.0-16.0) g/dL Hct 25.7 L 23.5 L (37-47) % Plt Count 402 H (130-400) K/uL BMP 09/22/21 07:06 Sodium 141 Potassium 3.5 Chloride 109 H Carbon Dioxide 28 BUN 6 Creatinine 0.81 Glucose 87 Calcium 7.8 L (1) Anemia Anemia type: unspecified type Qualified Code(s): D64.9 - Anemia, unspecified (2) Pulmonary embolism Acute cor pulmonale presence: without acute cor pulmonale Chronicity: chronic Pulmonary embolism type: unspecified Qualified Code(s): I27.82 - Chronic pulmonary embolism
[2021-09-22] MEDS: RIVAROXABAN 20 MG TAB PO SCH (17:09)
[2021-09-22 19:04] LABS: Hematocrit (blood only) 25.8 % (37-47); Hemoglobin 7.8 g/dL (12.0-16.0)
[2021-09-22] MEDS: LATANOPROST 0.005% OP SOLN 2.5 ML BTL OPB SCH (20:57)
[2021-09-23] MEDS: ACETAMINOPHEN 325 MG TAB PO PRN (04:55)
[2021-09-23] MEDS: LEVOTHYROXINE SODIUM 75 MCG TABLET PO SCH (06:00)
[2021-09-23 07:31] LABS: Hematocrit (blood only) 25.3 % (37-47); Hemoglobin 7.9 g/dL (12.0-16.0)
[2021-09-23 08:05] LABS: Iron 122 mcg/dl (35-150); Total Iron Binding Cap Calc 293 mcg/dl (250-450); Transferrin (FE) Percent Satur 42 % (15-50); Unsaturated Iron Binding Cap 171 mcg/dl (155-355)
[2021-09-23] MEDS ORDERED: IRON SUCROSE 400 MG in SODIUM CHLORIDE 0.9% 250 ML IV ONE (09:00)
[2021-09-23] MEDS: predniSONE 5 MG TAB PO SCH (09:01)
[2021-09-23] MEDS: ATORVASTATIN 40 MG TAB PO SCH (09:01)
[2021-09-23] MEDS: CEROVITE ADV FORMULA TAB PO SCH (09:01)
[2021-09-23] MEDS: lisinopril 20 MG TAB PO SCH (09:01)
[2021-09-23] MEDS: PANTOprazole 40 MG TAB PO SCH (09:01)
[2021-09-23] MEDS: FERROUS SULFATE 325 MG TAB PO SCH (10:09)
[2021-09-23] MEDS: HYDROCORTISONE HC 2.5% CRM 30GM TUBE EXT SCH (10:10)
--- NOTE | 2021-09-23 16:32 | Discharge Summary ---
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 Her last C-scope and EGD were completed on 03/14/2021 which showed large grade C esophagitis without bleeding, and multiple small mouth diverticula involving the sigmoid colon. Her hemoglobin baseline appears to be between 9-10, however has significantly dropped several times within the past few weeks. She was admitted to [facility] where she was transferred transfused 2 units on September 04, then on September 12 received another 1 unit in the [facility] ER, and now he presents with a hemoglobin of 6.3 today being transfused 1 unit PRBCs. Initially she had gone to the heme-onc office for repeat follow-up and was sent in to the hospital due to low hemoglobin of 6.3. Patient reports BRBPR and estimates it to be 4 cups/day; she reports 1 cup of bright red blood every time she has to go to the bathroom to urinate, which is approximately 4 times per day, and then estimates 2 cups with every bowel movement however may only have BM every other day. She continues with Xarelto. Patient has outpatient colorectal surgeon appointment scheduled on 09/25 at [facility] as this is when the specialist is in town once a month. Admission Exam Per Admitting Provider General: awake, alert, no apparent distress, Head: Normocephalic, atraumatic ENT: PERRL, EOMI, no pharyngeal exudate, mucous membranes moist Chest: Clear to auscultation, on room air, no adventitious breath sounds Cardiac: Regular rate and rhythm, no murmur, no JVD, normal peripheral pulses, good capillary refill Abdominal: NABS x 4 quadrants, soft, nondistended, nontender to palpation, no rebound or guarding Extremities: Normal inspection, no peripheral edema or erythema, calfs nontender to palpation Psych: Normal mood and affect Neuro: AAO x 3, strength intact bilaterally and rated 5/5, no motor deficits, speech is clear, no peripheral sensory deficits Principal Diagnosis Acute on chronic blood loss anemia, hematochezia Discharge Exam General: Sitting comfortably in chair, not in distress, on room air HEENT: EOMI, GERMAN, MMM Chest: Clear breath sounds bilaterally, no wheezes or crackles CVS: Regular rate and rhythm, normal heart sounds, no murmur Abdomen: Soft, non tender, not distended, normal bowel sounds Neuro: Awake, alert, oriented, conversing well, non focal Extremities: No cyanosis, clubbing or edema Discharge Data Allergies Allergy/AdvReac Type Severity Reaction Status Date / Time brinzolamide AdvReac Intermediate [id number] Verified 09/20/21 12:45 TIS codeine AdvReac Mild Hallucinati Verified 09/20/21 12:45 ng Consultations 09/17/21 17:42 ED Decision to Admit Stat 09/17/21 19:15 Consult Gastroenterology Routine 09/21/21 12:52 Consult Cardiology Routine Procedures Performed Operation Date: 09/20/21 09:30 Actual Procedures p Colonoscopy - Soraya Hooker MD Ordered Studies 09/18/21 08:33 CT abd pelvis IV con only Urgent Hospital Course (1) Diverticulosis: (2) HTN (hypertension): (3) Hypothyroidism: (4) PMR (polymyalgia rheumatica): (5) Morbid obesity with BMI of 45.0-49.9, adult: 65 year old female with history of multiple DVT and PE on xarelto, GI bleed who presented to the ED on 09/17 with rectal bleed. Her Hb was 6.2 and had iron deficiency. Given 2 U of PRBC and iv ironx3. Underwent colonoscopy which showed diverticula but no active bleed. Bleeding scan was negative. Xarelto was resumed 09/22. No further bleed, Hb stable >8. Stable for discharge. Recommended f/u with colorectal surgery as OP. Acute on chronic blood loss anemia Hematochezia, likely diverticular+/-hemorrhoidal bleed - Bleeding has stopped, xarelto has been resumed, Hb remained stable, hemodynamically stable. - Nuclear bleeding scan 09/21 was negative. - S/p colonoscopy 09/20 which showed ascending and sigmoid diverticula- Ok per GI to start diet and resume xarelto. - s/p 2 U of PRBC, Hb 6.2--> 7.2 --> 6.9 --> 8.1 ->7.6->8.7. - S/p iron transfusion x3. Iron deficiency of 1.7 g. - Seen by GI- recommendations noted- OP f/u with colorectal surgery. Recurrent VTE -on lifelong Xarelto, likely underlying hypercoagulable condition - continue xarelto HTN - BP stable, continue home meds Mobitz type2- brief episode, asymptomatic, seen in tele. Seen by cardio. Echo unremarkable except for grade II diastolic dysfunction. Recommended OP zio x2 weeks or even loop recorder. F/u as OP Hypothyroidism- continue synthroid History of menorrhagia and fibroids-s/p hysterectomy Morbid obesity- BMI 47.5. Weight loss recommended. Follow up with PCP Total Time Total Time Spent Total Time Spent (In Minutes): 38 Discharge Plan Discharge Items Patient Disposition: Home - Self-Care Reason For Visit: ANEMIC Discharge Diagnosis: Acute on chronic blood loss anemia, hematochezia Activity: Resume your previous activity Non-emergency contact: Primary Care Provider, Leadlighter and Mortgage Loan Coordinator Call non-emergency contact if: you have any medication questions and your sympto ms worsen Follow-up/Referrals: Chaz Alves MD [Primary Care Provider] - Diet: Regular Addtl Attending Provider Instructions: Follow with colorectal surgery Follow with cardiology for heart monitor Follow with GI Pending Studies at Discharge: No Stand-Alone Forms: My [employer], Smoking Cessation Medications and DC Order Prescriptions: Continued atorvastatin 40 mg tablet 40 mg PO DAILY RF: 0 calcium polycarbophil 625 mg Tablet 625 mg PO DAILY RF: 0 hydrocortisone 2.5 % cream with perineal applicator 1 applic [place] DAILY RF: 0 ferrous sulfate [iron] 325 mg (65 mg iron) Tablet 325 mg PO BID RF: 0 latanoprost 0.005 % drops 1 drp OPB HS RF: 0 levothyroxine 75 mcg tablet 75 mcg PO QAM RF: 0 lisinopril-hydrochlorothiazide 20-12.5 mg tablet 1 tab PO DAILY RF: 0 omeprazole 40 mg capsule,delayed release(DR/EC) 40 mg PO DAILY RF: 0 fjowzotfowvy-Tc-fklg-minerals Tablet 1 tab PO DAILY RF: 0 prednisone 10 mg tablet 5 mg PO DAILY RF: 0 Xarelto 20 mg tablet 20 mg PO DAILY RF: 0 Discontinued meloxicam 15 mg tablet 12 mg PO DAILY RF: 0 Discharge Orders: Discharge Order (Routine); Ordered 09/23/21 Ordered By: Darnell Pacheco/Other Patient Handouts: Stroke and Heart Disease, Diabetes and Heart Disease, Low-Salt Choices, Women Heart Disease Changes, Your Heart Is at Risk Admission Data Admit Date/Time: 09/17/21 17:46 Attending Provider: Darnell Lopez Admit Provider: Macy Leonardo Primary Care Provider: Chaz Alves Other Providers: Macy Leonardo ; Shiva Joya ; Esdras Finley ; Sai Carter ; Yassine Beltran ; Gunner Roberts ; Feliberto Pritchard ; Manjeet Barriga ; Kathie Lane ; Connie Sim ; Kimberly Amos. ; Shahab Mccarthy Other Interventions: Discharge Summary Assessment (RN) Last Done: 09/23/21 13:03 Supervising Physician Co-Signing Physician Notes I saw and evaluated the patient. We were reconsulted for evaluation of recurrent hematochezia. The patient did have a colonoscopy yesterday with one of my partners notable for diverticulosis of the left colon and hemorrhoids. Based on the patient's description we wonder about an anorectal etiology as she does have formed bowel movements with blood around, in the toilet water and on tissue paper Recommendations Consider a tagged RBC study If negative would recommend outpatient evaluation by colorectal surgery Therefore diverticular hemorrhage would then recommend referral to a tertiary center with interventional radiology
== END 2021-09-23 15:30 | disposition home or self-care (01) | DRG 378 ==
LOC: ED 15:15 → SUATTDRO 17:46 → 2S 17:46